=== PATIENT | female | born 1940 | race Two or more races ===

== ENCOUNTER 2022-10-04 10:30 | Inpatient (IN) | payer OTHER ==
[~2022-10-04] VITALS: Ht 170.2 cm; Wt 109.0 kg
[2022-10-04 11:09] LABS: Basophils # (auto) 0.1 10 ^3/uL (0-0.2); Basophils % (auto) 0.5 % (0.0-2.0); Eosinophils # (auto) 0 10 ^3/uL (0-0.8); Eosinophils % (auto) 0.1 % (0.0-7.0); Hemoglobin 15.6 g/dL (12.2-16.2); Lymphocytes # (auto) 1.6 10 ^3/uL (0.4-5.4); Lymphocytes % (auto) 9.5 % (10.0-50.0); Mean Corpuscular Hemoglobin 29.6 pg (28.0-32.0); Mean Corpuscular Hgb Conc. 33.3 g/dL (32.0-36.0); Monocytes # (auto) 1.1 10 ^3/uL (0-1.3); Monocytes % (auto) 6.9 % (0.0-12.0); Neutrophils # (auto) 13.7 10 ^3/uL (1.6-8.6); Red Blood Cells 5.28 10^6/uL (4.0-5.20); White Blood Cell 16.5 10^3/uL (4.4-10.8)
[2022-10-04 11:18] LABS: Urine Bacteria NONE SEEN /hpf (None Seen); Urine Blood Negative /uL (Negative); Urine Specific Gravity 1.019 (1.001-1.035); Urine WBC 16 /hpf (0 - 5)
[2022-10-04 11:40] LABS: Potassium 3.4 mmol/L (3.5-5.1)
[2022-10-04 11:52] LABS: Albumin 4.1 g/dL (3.4-5.0); BUN/Creatinine Ratio 10.2; Bilirubin, Total 1.1 mg/dL (0.2-1.0); Calcium 9.8 mg/dL (8.5-10.1); Total Protein 7.1 g/dL (6.4-8.2)
[2022-10-04] MEDS ORDERED: cefTRIAXone 1GM/50ML D5W 50 ML IV ONE (13:00)
[2022-10-04] MEDS ORDERED: ONDANSETRON HCL 4 MG/2 ML VIAL IV ONE (13:00)
[2022-10-04] MEDS ORDERED: MORPHINE SULFATE 4 MG/ML SYR/VIAL IV ONE (13:00)
[2022-10-04] MEDS ORDERED: POTASSIUM EFFERVESENT TAB 25 MEQ PO ONE (15:15)
[2022-10-04] MEDS ORDERED: ALBUTEROL SULF 2.5 MG/0.5ML(0.5%) NEB SOLN NEB PRN (16:00)
[2022-10-04] MEDS ORDERED: IPRATROPIUM BROM 0.5 MG/2.5ML INH SOL NEB PRN (16:00)
[2022-10-04] MEDS: SODIUM CHLORIDE 0.9% 1,000 ML IV SCH (17:17)
[2022-10-04 18:30] VITALS: BP 148/62
[2022-10-04] MEDS: MORPHINE SULFATE INJ 2 MG/ml SYRG IV PRN (19:08)
[2022-10-04] MEDS ORDERED: METO-517 PO (19:09)
[2022-10-04] MEDS ORDERED: MONT-8 PO (19:09)
[2022-10-04] MEDS ORDERED: DILT-29 PO (19:10)
[2022-10-04] MEDS ORDERED: LORA1TAB23 PO (19:10)
[2022-10-04] MEDS ORDERED: OMEP-263 PO (19:10)
[2022-10-04] MEDS ORDERED: LEVO100T8 PO (19:10)
[2022-10-04] MEDS ORDERED: VALS320T32 PO (19:10)
[2022-10-04] MEDS ORDERED: HYDR-3682 PO (19:10)
[2022-10-04] MEDS: MONTELUKAST SODIUM 10 MG TAB PO SCH (21:15)
[2022-10-04] MEDS: DOCUSATE SOD 100 MG CAP PO SCH (21:15)
[2022-10-04 22:00] VITALS: BP 143/56
[2022-10-05 05:00] VITALS: BP 103/40
[2022-10-05] MEDS: SODIUM CHLORIDE 0.9% 1,000 ML IV SCH ×2 (05:20→18:40)
[2022-10-05] MEDS: HYDROcodone-ACET 5/325MG TAB PO PRN (08:41)
[2022-10-05 09:00] VITALS: BP 126/40
[2022-10-05] MEDS ORDERED: cefTRIAXone 1GM/50ML D5W 50 ML IV SCH (09:00)
[2022-10-05 09:28] LABS: Basophils # (auto) 0.1 10 ^3/uL (0-0.2); Basophils % (auto) 0.4 % (0.0-2.0); Eosinophils # (auto) 0 10 ^3/uL (0-0.8); Hematocrit 40.9 % (36.0-46.0); Hemoglobin 13.9 g/dL (12.2-16.2); Lymphocytes # (auto) 1.1 10 ^3/uL (0.4-5.4); Lymphocytes % (auto) 4.6 % (10.0-50.0); Mean Corpuscular Hemoglobin 30.6 pg (28.0-32.0); Mean Corpuscular Hgb Conc. 34.1 g/dL (32.0-36.0); Mean Corpuscular Volume 89.7 fL (80.0-100.0); Monocytes # (auto) 2.7 10 ^3/uL (0-1.3); Monocytes % (auto) 11.1 % (0.0-12.0); Neutrophils # (auto) 20.2 10 ^3/uL (1.6-8.6); Neutrophils % (auto) 83.9 % (37.0-80.0); Red Blood Cells 4.56 10^6/uL (4.0-5.20); Red Cell Distribution Width 13.3 % (11.8-14.3); White Blood Cell 24.1 10^3/uL (4.4-10.8)
[2022-10-05 09:56] LABS: BUN/Creatinine Ratio 9.2; Potassium 3.4 mmol/L (3.5-5.1)
[2022-10-05] MEDS: DOCUSATE SOD 100 MG CAP PO SCH ×2 (10:28→21:21)
[2022-10-05] MEDS: POLYETHYLENE GLYCOL 17 GM PWDR PO SCH (10:28)
[2022-10-05] MEDS: VALSARTAN 80 MG TAB PO SCH (10:28)
[2022-10-05] MEDS: NIFEdipine ER 30 MG TAB PO SCH (10:29)
[2022-10-05 13:00] VITALS: BP 132/43
[2022-10-05] MEDS: MEROPENEM 1GM IVPB 100 ML IV SCH ×2 (14:54→21:23)
[2022-10-05 16:55] VITALS: BP 102/85
[2022-10-05] MEDS: ACETAMINOPHEN 500 MG TAB PO PRN (17:12)
[2022-10-05] MEDS: LACTULOSE 20Gm/30ML SOLN PO SCH ×2 (17:41→23:34)
[2022-10-05] MEDS: MONTELUKAST SODIUM 10 MG TAB PO SCH (21:21)
[2022-10-05 22:00] VITALS: BP 104/37
[2022-10-06 05:00] VITALS: BP 100/28
[2022-10-06] MEDS: LACTULOSE 20Gm/30ML SOLN PO SCH ×4 (05:13→23:41)
[2022-10-06] MEDS: HYDROcodone-ACET 5/325MG TAB PO PRN ×2 (05:14→11:40)
[2022-10-06] MEDS: MEROPENEM 1GM IVPB 100 ML IV SCH ×3 (05:19→21:43)
[2022-10-06 07:01] LABS: Hematocrit 39.4 % (36.0-46.0); Hemoglobin 12.9 g/dL (12.2-16.2); Mean Corpuscular Hgb Conc. 32.9 g/dL (32.0-36.0); Mean Corpuscular Volume 91.3 fL (80.0-100.0); Red Blood Cells 4.31 10^6/uL (4.0-5.20); Red Cell Distribution Width 13.7 % (11.8-14.3); White Blood Cell 26.2 10^3/uL (4.4-10.8)
[2022-10-06 07:25] LABS: Basophils % (manual) 0 (0.0-2.0); Blast Cells 0; Eosinophils % (manual) 0 (0-7); Metamyelocytes % 0; Myelocytes % 0; Promyelocytes % 0; Reactive Lymphocytes 0
[2022-10-06 07:32] LABS: BUN/Creatinine Ratio 11.3; Calcium 8.8 mg/dL (8.5-10.1)
[2022-10-06 07:49] LABS: Potassium 2.9 mmol/L (3.5-5.1)
[2022-10-06] MEDS: SODIUM CHLORIDE 0.9% 1,000 ML IV SCH (08:00)
[2022-10-06] MEDS ORDERED: POTASSIUM CHLORIDE 40 MEQ, LIDOCAINE 1% (LOCAL ANESTH.) 4 ML in SODIUM CHL 0.9% 250 ML IV ONE (08:15)
[2022-10-06 08:54] VITALS: BP 111/36
[2022-10-06] MEDS: NIFEdipine ER 30 MG TAB PO SCH (10:00)
[2022-10-06] MEDS: VALSARTAN 80 MG TAB PO SCH (10:00)
[2022-10-06] MEDS: POLYETHYLENE GLYCOL 17 GM PWDR PO SCH (11:23)
[2022-10-06] MEDS: DOCUSATE SOD 100 MG CAP PO SCH ×2 (11:23→21:43)
[2022-10-06 11:47] LABS: Band Neutrophils % (manual) 4; Lymphocytes % (manual) 4 (10.0-50.0); Monocytes % (manual) 7 (0-12)
[2022-10-06 12:50] VITALS: BP 126/53
[2022-10-06] MEDS: SOD CHL 0.45% WITH 20MEQ KCL 1,000 ML IV SCH (13:46)
[2022-10-06 17:00] VITALS: BP 105/82
[2022-10-06] MEDS: MORPHINE SULFATE INJ 2 MG/ml SYRG IV PRN (18:27)
[2022-10-06] MEDS: ONDANSETRON HCL 4 MG/2 ML VIAL IV PRN (19:47)
[2022-10-06 20:00] VITALS: BP 130/42
[2022-10-06] MEDS: MONTELUKAST SODIUM 10 MG TAB PO SCH (21:43)
[2022-10-06 22:00] VITALS: BP 130/42
[2022-10-07] MEDS: HYDROcodone-ACET 5/325MG TAB PO PRN ×3 (03:39→19:00)
[2022-10-07 05:00] VITALS: BP 109/38
[2022-10-07] MEDS: SOD CHL 0.45% WITH 20MEQ KCL 1,000 ML IV SCH ×3 (05:21→19:15)
[2022-10-07] MEDS: MEROPENEM 1GM IVPB 100 ML IV SCH ×3 (05:22→21:50)
[2022-10-07] MEDS: LACTULOSE 20Gm/30ML SOLN PO SCH ×2 (05:23→12:00)
[2022-10-07 05:26] LABS: Basophils # (auto) 0.1 10 ^3/uL (0-0.2); Basophils % (auto) 0.3 % (0.0-2.0); Eosinophils # (auto) 0 10 ^3/uL (0-0.8); Eosinophils % (auto) 0.1 % (0.0-7.0); Hematocrit 35.8 % (36.0-46.0); Hemoglobin 12.1 g/dL (12.2-16.2); Lymphocytes # (auto) 1.4 10 ^3/uL (0.4-5.4); Lymphocytes % (auto) 6.5 % (10.0-50.0); Mean Corpuscular Hemoglobin 30.4 pg (28.0-32.0); Mean Corpuscular Hgb Conc. 33.7 g/dL (32.0-36.0); Mean Corpuscular Volume 90.3 fL (80.0-100.0); Monocytes # (auto) 1.9 10 ^3/uL (0-1.3); Monocytes % (auto) 9.1 % (0.0-12.0); Neutrophils # (auto) 17.7 10 ^3/uL (1.6-8.6); Nucleated Red Blood Cells % 0.1 %; Red Blood Cells 3.96 10^6/uL (4.0-5.20); Red Cell Distribution Width 13.3 % (11.8-14.3); White Blood Cell 21.1 10^3/uL (4.4-10.8)
[2022-10-07 05:50] LABS: Potassium 3.4 mmol/L (3.5-5.1)
[2022-10-07 05:54] LABS: BUN/Creatinine Ratio 10.8; Calcium 8.4 mg/dL (8.5-10.1)
[2022-10-07 08:51] VITALS: BP 108/87
[2022-10-07] MEDS: DOCUSATE SOD 100 MG CAP PO SCH ×2 (09:52→21:49)
[2022-10-07] MEDS: POLYETHYLENE GLYCOL 17 GM PWDR PO SCH (09:52)
[2022-10-07 13:27] VITALS: BP 109/55
[2022-10-07 13:37] LABS: Urine Bacteria NONE SEEN /hpf (None Seen); Urine Blood 3+ /uL (Negative); Urine Specific Gravity 1.015 (1.001-1.035); Urine WBC 28 /hpf (0 - 5)
[2022-10-07 17:00] VITALS: BP 138/45
[2022-10-07] MEDS: ACETAMINOPHEN 500 MG TAB PO PRN (17:55)
[2022-10-07] MEDS: MONTELUKAST SODIUM 10 MG TAB PO SCH (21:51)
[2022-10-07 22:31] VITALS: BP 108/37
[2022-10-08] MEDS: HYDROcodone-ACET 5/325MG TAB PO PRN ×4 (00:40→21:38)
[2022-10-08 04:41] VITALS: BP 112/31
[2022-10-08 06:13] LABS: BUN/Creatinine Ratio 13.9 (10.0-20.0); Calcium 8.8 mg/dL (8.5-10.1); Potassium 3.6 mmol/L (3.5-5.1)
[2022-10-08 06:21] LABS: Basophils # (auto) 0.1 10 ^3/uL (0-0.2); Basophils % (auto) 0.5 % (0.0-2.0); Eosinophils # (auto) 0.1 10 ^3/uL (0-0.8); Eosinophils % (auto) 0.7 % (0.0-7.0); Hematocrit 36.1 % (36.0-46.0); Hemoglobin 12.1 g/dL (12.2-16.2); Lymphocytes # (auto) 1.5 10 ^3/uL (0.4-5.4); Lymphocytes % (auto) 10.5 % (10.0-50.0); Mean Corpuscular Hemoglobin 30.2 pg (28.0-32.0); Mean Corpuscular Hgb Conc. 33.5 g/dL (32.0-36.0); Mean Corpuscular Volume 90.4 fL (80.0-100.0); Monocytes # (auto) 1.6 10 ^3/uL (0-1.3); Monocytes % (auto) 10.8 % (0.0-12.0); Neutrophils # (auto) 11.2 10 ^3/uL (1.6-8.6); Neutrophils % (auto) 77.5 % (37.0-80.0); Red Blood Cells 3.99 10^6/uL (4.0-5.20); Red Cell Distribution Width 13.1 % (11.8-14.3); White Blood Cell 14.4 10^3/uL (4.4-10.8)
[2022-10-08] MEDS: MEROPENEM 1GM IVPB 100 ML IV SCH ×3 (06:41→21:37)
[2022-10-08] MEDS: SOD CHL 0.45% WITH 20MEQ KCL 1,000 ML IV SCH ×2 (06:41→17:11)
[2022-10-08 09:07] VITALS: BP 131/38
[2022-10-08] MEDS: DOCUSATE SOD 100 MG CAP PO SCH ×2 (09:19→21:37)
[2022-10-08] MEDS: POLYETHYLENE GLYCOL 17 GM PWDR PO SCH (09:19)
[2022-10-08 12:33] VITALS: BP 116/38
[2022-10-08 16:54] VITALS: BP 94/62
[2022-10-08] MEDS: ONDANSETRON HCL 4 MG/2 ML VIAL IV PRN (17:11)
[2022-10-08 20:31] LABS: Urine Bacteria NONE SEEN /hpf (None Seen); Urine Blood 3+ /uL (Negative); Urine Specific Gravity 1.011 (1.001-1.035); Urine WBC 11 /hpf (0 - 5)
[2022-10-08] MEDS: MONTELUKAST SODIUM 10 MG TAB PO SCH (21:37)
[2022-10-08 22:00] VITALS: BP 124/32
[2022-10-09] MEDS: SOD CHL 0.45% WITH 20MEQ KCL 1,000 ML IV SCH (01:15)
[2022-10-09 05:00] VITALS: BP 121/30
[2022-10-09] MEDS: MEROPENEM 1GM IVPB 100 ML IV SCH ×3 (05:16→22:46)
[2022-10-09] MEDS: HYDROcodone-ACET 5/325MG TAB PO PRN (05:16)
[2022-10-09 05:41] LABS: Basophils # (auto) 0.1 10 ^3/uL (0-0.2); Basophils % (auto) 0.9 % (0.0-2.0); Eosinophils # (auto) 0.2 10 ^3/uL (0-0.8); Eosinophils % (auto) 1.7 % (0.0-7.0); Hematocrit 37.7 % (36.0-46.0); Hemoglobin 12.8 g/dL (12.2-16.2); Lymphocytes # (auto) 1.9 10 ^3/uL (0.4-5.4); Lymphocytes % (auto) 13.7 % (10.0-50.0); Mean Corpuscular Hemoglobin 30.6 pg (28.0-32.0); Mean Corpuscular Hgb Conc. 33.9 g/dL (32.0-36.0); Mean Corpuscular Volume 90.2 fL (80.0-100.0); Monocytes # (auto) 1.5 10 ^3/uL (0-1.3); Monocytes % (auto) 11.2 % (0.0-12.0); Neutrophils # (auto) 9.8 10 ^3/uL (1.6-8.6); Neutrophils % (auto) 72.5 % (37.0-80.0); Nucleated Red Blood Cells % 0.1 %; Red Blood Cells 4.18 10^6/uL (4.0-5.20); Red Cell Distribution Width 13.5 % (11.8-14.3); White Blood Cell 13.5 10^3/uL (4.4-10.8)
[2022-10-09 05:59] LABS: Calcium 8.8 mg/dL (8.5-10.1); Potassium 3.8 mmol/L (3.5-5.1)
[2022-10-09 06:01] LABS: BUN/Creatinine Ratio 13.5 (10.0-20.0)
[2022-10-09] MEDS: ALBUTEROL SULF 2.5 MG/0.5ML(0.5%) NEB SOLN NEB PRN ×3 (07:19→22:11)
[2022-10-09] MEDS: IPRATROPIUM BROM 0.5 MG/2.5ML INH SOL NEB PRN ×3 (07:19→22:11)
[2022-10-09 08:54] VITALS: BP 152/64
[2022-10-09] MEDS ORDERED: LORazepam 0.5 MG TAB PO PRN (09:30)
[2022-10-09] MEDS: POLYETHYLENE GLYCOL 17 GM PWDR PO SCH (09:54)
[2022-10-09] MEDS: DOCUSATE SOD 100 MG CAP PO SCH ×2 (09:54→22:46)
[2022-10-09 11:53] VITALS: BP 134/51
[2022-10-09 14:45] VITALS: BP 134/51
[2022-10-09 17:00] VITALS: BP 131/58
[2022-10-09 22:00] VITALS: BP 143/62
[2022-10-09] MEDS: MONTELUKAST SODIUM 10 MG TAB PO SCH (22:46)
[2022-10-10 05:00] VITALS: BP 109/45
[2022-10-10] MEDS: MEROPENEM 1GM IVPB 100 ML IV SCH ×2 (05:36→14:16)
[2022-10-10 06:35] LABS: Basophils # (auto) 0.1 10 ^3/uL (0-0.2); Basophils % (auto) 1.1 % (0.0-2.0); Eosinophils # (auto) 0.2 10 ^3/uL (0-0.8); Eosinophils % (auto) 1.6 % (0.0-7.0); Hematocrit 34.7 % (36.0-46.0); Hemoglobin 11.7 g/dL (12.2-16.2); Lymphocytes # (auto) 1.3 10 ^3/uL (0.4-5.4); Lymphocytes % (auto) 12.9 % (10.0-50.0); Mean Corpuscular Hemoglobin 30.6 pg (28.0-32.0); Mean Corpuscular Hgb Conc. 33.7 g/dL (32.0-36.0); Mean Corpuscular Volume 90.7 fL (80.0-100.0); Monocytes # (auto) 1.4 10 ^3/uL (0-1.3); Monocytes % (auto) 13.8 % (0.0-12.0); Neutrophils % (auto) 70.6 % (37.0-80.0); Red Blood Cells 3.82 10^6/uL (4.0-5.20); Red Cell Distribution Width 13.1 % (11.8-14.3); White Blood Cell 9.9 10^3/uL (4.4-10.8)
[2022-10-10 06:49] LABS: BUN/Creatinine Ratio 11.8 (10.0-20.0); Calcium 9.1 mg/dL (8.5-10.1); Potassium 3.5 mmol/L (3.5-5.1)
[2022-10-10 08:54] VITALS: BP 124/69
[2022-10-10] MEDS ORDERED: CEFD300C2 PO (09:38)
[2022-10-10] MEDS: POLYETHYLENE GLYCOL 17 GM PWDR PO SCH (10:00)
[2022-10-10] MEDS: DOCUSATE SOD 100 MG CAP PO SCH (10:00)
[2022-10-10] MEDS: ALBUTEROL SULF 2.5 MG/0.5ML(0.5%) NEB SOLN NEB PRN (11:15)
[2022-10-10] MEDS: IPRATROPIUM BROM 0.5 MG/2.5ML INH SOL NEB PRN (11:15)
[2022-10-10 12:30] VITALS: BP 126/79
[2022-10-10 17:03] VITALS: BP 137/74
[2022-10-10 18:08] VITALS: BP 111/36
== END 2022-10-10 19:00 | disposition home or self-care (01) | DRG 872 ==
LOC: EDBD 10:30 → ER 10:30 → OVERFLOW 15:54 → CENTRAL 18:22
PROVIDERS: ADMIT Nurse Practitioner Acute Care; ATTEND Nurse Practitioner Acute Care
DX: A41.9 Sepsis, unspecified organism (principal); N30.90 Cystitis, unspecified without hematuria; K59.00 Constipation, unspecified; I10 Essential (primary) hypertension; E11.9 Type 2 diabetes mellitus without complications; E66.9 Obesity, unspecified; J45.909 Unspecified asthma, uncomplicated; M17.0 Bilateral primary osteoarthritis of knee; E03.9 Hypothyroidism, unspecified; G89.29 Other chronic pain; Z90.710 Acquired absence of both cervix and uterus; Z68.36 Body mass index [BMI] 36.0-36.9, adult; Z87.440 Personal history of urinary (tract) infections
CPT/HCPCS: 36415; 71045; 74176; 76775; 80048; 80053; 81001; 84484; 85007; 85025; 85027; 87040; 87086; 93005; 94640; 96365; 96375; 97110; 97116; 97163; 97530; G0378; J0696; J2001; J2185; J2405

== ENCOUNTER 2022-11-26 18:13 | Inpatient (IN) | payer OTHER ==
[~2022-11-26] VITALS: Ht 170.2 cm; Wt 98.1 kg
[~2022-11-26 18:13] MED LIST: CEFD300C2 PO; DILT-29 PO; LEVO100T8 PO; LORA1TAB23 PO; OMEP-263 PO; VALS320T32 PO
[2022-11-26] MEDS ORDERED: AZITHROMYCIN 500MG/ 250ML 250 ML IV ONE (19:00)
[2022-11-26] MEDS ORDERED: methylPREDNISolone SOD SUCC 125 MG/2 ML VL IV ONE (19:00)
[2022-11-26 19:10] LABS: Basophils # (auto) 0.1 10 ^3/uL (0-0.2); Basophils % (auto) 0.9 % (0.0-2.0); Eosinophils # (auto) 0.1 10 ^3/uL (0-0.8); Hematocrit 43.1 % (36.0-46.0); Hemoglobin 14.6 g/dL (12.2-16.2); Lymphocytes # (auto) 1.7 10 ^3/uL (0.4-5.4); Lymphocytes % (auto) 30.2 % (10.0-50.0); Mean Corpuscular Hemoglobin 29.7 pg (28.0-32.0); Mean Corpuscular Hgb Conc. 33.9 g/dL (32.0-36.0); Mean Corpuscular Volume 87.5 fL (80.0-100.0); Monocytes # (auto) 0.8 10 ^3/uL (0-1.3); Monocytes % (auto) 14.2 % (0.0-12.0); Neutrophils % (auto) 53.7 % (37.0-80.0); Nucleated Red Blood Cells % 0.4 %; Red Blood Cells 4.92 10^6/uL (4.0-5.20); Red Cell Distribution Width 13.4 % (11.8-14.3); White Blood Cell 5.6 10^3/uL (4.4-10.8)
[2022-11-26 19:52] LABS: BUN/Creatinine Ratio 11.8 (10.0-20.0); Calcium 9.8 mg/dL (8.5-10.1)
[2022-11-26 20:03] LABS: Bilirubin, Total 0.8 mg/dL (0.2-1.0); Total Protein 7.5 g/dL (6.4-8.2)
[2022-11-26 20:27] LABS: Urine Bacteria FEW /hpf (None Seen); Urine Blood Negative /uL (Negative); Urine Specific Gravity 1.009 (1.001-1.035); Urine WBC 1 /hpf (0 - 5)
[2022-11-26] MEDS ORDERED: POTASSIUM CHL 20MEQ/100ML 100 ML IV ONE (20:30)
[2022-11-26] MEDS ORDERED: ALBUTEROL SULF 2.5 MG/0.5ML(0.5%) NEB SOLN NEB PRN (20:45)
[2022-11-26 20:51] VITALS: BP 150/79
[2022-11-26] MEDS: ASCORBIC ACID 500 MG TAB PO SCH (23:23)
[2022-11-26] MEDS: MONTELUKAST SODIUM 10 MG TAB PO SCH (23:23)
[2022-11-27 05:35] LABS: Basophils # (auto) 0 10 ^3/uL (0-0.2); Basophils % (auto) 0.3 % (0.0-2.0); Eosinophils # (auto) 0 10 ^3/uL (0-0.8); Hematocrit 38.8 % (36.0-46.0); Hemoglobin 13.3 g/dL (12.2-16.2); Lymphocytes # (auto) 0.8 10 ^3/uL (0.4-5.4); Lymphocytes % (auto) 26.3 % (10.0-50.0); Mean Corpuscular Hemoglobin 30.1 pg (28.0-32.0); Mean Corpuscular Hgb Conc. 34.3 g/dL (32.0-36.0); Mean Corpuscular Volume 87.8 fL (80.0-100.0); Monocytes # (auto) 0.1 10 ^3/uL (0-1.3); Neutrophils # (auto) 2.2 10 ^3/uL (1.6-8.6); Neutrophils % (auto) 71.4 % (37.0-80.0); Nucleated Red Blood Cells % 0.1 %; Red Blood Cells 4.42 10^6/uL (4.0-5.20); Red Cell Distribution Width 13.6 % (11.8-14.3); White Blood Cell 3.1 10^3/uL (4.4-10.8)
[2022-11-27 05:56] LABS: Potassium 3.2 mmol/L (3.5-5.1)
[2022-11-27 06:02] LABS: BUN/Creatinine Ratio 11.8 (10.0-20.0)
[2022-11-27] MEDS: LEVOTHYROXINE SODIUM 100 MCG TAB PO SCH (06:58)
[2022-11-27] MEDS ORDERED: metFORMIN HYDROCHLORIDE 500 MG TAB PO SCH (08:00)
[2022-11-27] MEDS: AZITHROMYCIN 500MG/ 250ML 250 ML IV SCH (10:04)
[2022-11-27] MEDS: ZINC SULFATE 220mg CAP or TAB PO SCH (10:05)
[2022-11-27] MEDS: dilTIAZem 120MG ER CAP PO SCH (10:05)
[2022-11-27] MEDS: PANTOPRAZOLE 40 MG TAB PO SCH (10:05)
[2022-11-27] MEDS: ASCORBIC ACID 500 MG TAB PO SCH ×2 (10:05→22:30)
[2022-11-27] MEDS: ENOXAPARIN SOD 40 MG/0.4 ML SYRINGE SC SCH (10:24)
[2022-11-27] MEDS ORDERED: REMDESIVIR PER PHARMACY 0 ML IV SCH (10:30)
[2022-11-27] MEDS ORDERED: DexAMETHasone SOD PHOS 10MG/1ML VIAL INJ IV ONE (10:30)
[2022-11-27] MEDS: ACETAMINOPHEN 325 MG TAB PO PRN ×2 (10:51→21:04)
[2022-11-27] MEDS: ONDANSETRON HCL 4 MG/2 ML VIAL IV PRN (10:55)
[2022-11-27] MEDS ORDERED: IOHEXOL 350 MG/ML 100ML IJ ONE ×2 (11:42→11:45)
[2022-11-27] MEDS ORDERED: cefTRIAXone 1GM/50ML D5W 50 ML IV ONE (11:45)
[2022-11-27] MEDS ORDERED: REMDESIVIR 200 MG in NS 210ml LOADING DOSE ADULT IV ONE (12:00)
[2022-11-27] MEDS ORDERED: TEMAZEPAM 15 MG CAP PO ONE (21:15)
[2022-11-27 22:00] VITALS: BP 153/49
[2022-11-27] MEDS: MONTELUKAST SODIUM 10 MG TAB PO SCH (22:30)
[2022-11-28] VITALS (7 sets, daily range): BP systolic 112–150; BP diastolic 41–77
[2022-11-28 05:21] LABS: Basophils # (auto) 0 10 ^3/uL (0-0.2); Basophils % (auto) 0.1 % (0.0-2.0); Eosinophils # (auto) 0 10 ^3/uL (0-0.8); Hematocrit 37.2 % (36.0-46.0); Hemoglobin 12.6 g/dL (12.2-16.2); Lymphocytes # (auto) 1.3 10 ^3/uL (0.4-5.4); Lymphocytes % (auto) 15.5 % (10.0-50.0); Mean Corpuscular Hemoglobin 29.9 pg (28.0-32.0); Mean Corpuscular Hgb Conc. 33.8 g/dL (32.0-36.0); Mean Corpuscular Volume 88.5 fL (80.0-100.0); Monocytes # (auto) 0.8 10 ^3/uL (0-1.3); Monocytes % (auto) 8.9 % (0.0-12.0); Neutrophils # (auto) 6.6 10 ^3/uL (1.6-8.6); Neutrophils % (auto) 75.5 % (37.0-80.0); Nucleated Red Blood Cells % 0.1 %; Red Blood Cells 4.21 10^6/uL (4.0-5.20); Red Cell Distribution Width 13.7 % (11.8-14.3); White Blood Cell 8.7 10^3/uL (4.4-10.8)
[2022-11-28 05:33] LABS: BUN/Creatinine Ratio 12.5 (10.0-20.0); Potassium 3.2 mmol/L (3.5-5.1)
[2022-11-28] MEDS: LEVOTHYROXINE SODIUM 100 MCG TAB PO SCH (06:13)
[2022-11-28] MEDS: cefTRIAXone 1GM/50ML D5W 50 ML IV SCH (09:22)
[2022-11-28] MEDS: ASCORBIC ACID 500 MG TAB PO SCH ×2 (09:23→21:11)
[2022-11-28] MEDS: DexAMETHasone SOD PHOS 10MG/1ML VIAL INJ IV SCH (09:23)
[2022-11-28] MEDS: ENOXAPARIN SOD 40 MG/0.4 ML SYRINGE SC SCH (09:23)
[2022-11-28] MEDS: PANTOPRAZOLE 40 MG TAB PO SCH (09:23)
[2022-11-28] MEDS: ZINC SULFATE 220mg CAP or TAB PO SCH (09:23)
[2022-11-28] MEDS: dilTIAZem 120MG ER CAP PO SCH (09:25)
[2022-11-28] MEDS: AZITHROMYCIN 500MG/ 250ML 250 ML IV SCH (10:25)
[2022-11-28] MEDS: POTASSIUM EFFERVESENT TAB 25 MEQ GT SCH (10:29)
[2022-11-28] MEDS: ONDANSETRON HCL 4 MG/2 ML VIAL IV PRN (10:29)
[2022-11-28] MEDS: LORazepam 0.5 MG TAB PO PRN ×2 (10:30→17:50)
[2022-11-28] MEDS: REMDESIVIR 100mg 100 MG in SODIUM CHL 0.9% 230 ML IV SCH ×2 (16:14→16:25)
[2022-11-28] MEDS ORDERED: DOCUSATE SOD 100 MG CAP PO PRN (17:00)
[2022-11-28] MEDS ORDERED: VASELINE LIP THERAPY 10gm TOP PRN (17:00)
[2022-11-28] MEDS: MONTELUKAST SODIUM 10 MG TAB PO SCH (21:11)
[2022-11-29] MEDS: LORazepam 0.5 MG TAB PO PRN (00:04)
[2022-11-29 05:00] VITALS: BP 131/73
[2022-11-29 05:45] LABS: Basophils # (auto) 0 10 ^3/uL (0-0.2); Basophils % (auto) 0.1 % (0.0-2.0); Eosinophils # (auto) 0 10 ^3/uL (0-0.8); Hematocrit 38.4 % (36.0-46.0); Hemoglobin 12.6 g/dL (12.2-16.2); Lymphocytes # (auto) 1.2 10 ^3/uL (0.4-5.4); Lymphocytes % (auto) 12.6 % (10.0-50.0); Mean Corpuscular Hemoglobin 29.2 pg (28.0-32.0); Mean Corpuscular Hgb Conc. 32.9 g/dL (32.0-36.0); Mean Corpuscular Volume 88.8 fL (80.0-100.0); Monocytes # (auto) 0.7 10 ^3/uL (0-1.3); Monocytes % (auto) 7.5 % (0.0-12.0); Neutrophils # (auto) 7.4 10 ^3/uL (1.6-8.6); Neutrophils % (auto) 79.8 % (37.0-80.0); Nucleated Red Blood Cells % 0.1 %; Red Blood Cells 4.33 10^6/uL (4.0-5.20); Red Cell Distribution Width 13.9 % (11.8-14.3); White Blood Cell 9.3 10^3/uL (4.4-10.8)
[2022-11-29 06:05] LABS: Potassium 4.3 mmol/L (3.5-5.1)
[2022-11-29 06:10] LABS: BUN/Creatinine Ratio 18.2 (10.0-20.0); Calcium 9.1 mg/dL (8.5-10.1); Total Protein 5.4 g/dL (6.4-8.2)
[2022-11-29 06:17] LABS: Albumin 3.1 g/dL (3.4-5.0); Bilirubin, Total 0.5 mg/dL (0.2-1.0)
[2022-11-29] MEDS: LEVOTHYROXINE SODIUM 100 MCG TAB PO SCH (06:21)
[2022-11-29 07:51] VITALS: BP 141/61
[2022-11-29 08:00] VITALS: BP 138/78
[2022-11-29] MEDS: DexAMETHasone SOD PHOS 10MG/1ML VIAL INJ IV SCH (09:49)
[2022-11-29] MEDS: cefTRIAXone 1GM/50ML D5W 50 ML IV SCH (09:50)
[2022-11-29] MEDS: POTASSIUM EFFERVESENT TAB 25 MEQ GT SCH (09:50)
[2022-11-29] MEDS: ASCORBIC ACID 500 MG TAB PO SCH (09:50)
[2022-11-29] MEDS: AZITHROMYCIN 500MG/ 250ML 250 ML IV SCH (09:50)
[2022-11-29] MEDS: PANTOPRAZOLE 40 MG TAB PO SCH (09:50)
[2022-11-29] MEDS: ZINC SULFATE 220mg CAP or TAB PO SCH (09:51)
[2022-11-29] MEDS: dilTIAZem 120MG ER CAP PO SCH (09:51)
[2022-11-29] MEDS: ENOXAPARIN SOD 40 MG/0.4 ML SYRINGE SC SCH (10:04)
[2022-11-29] MEDS ORDERED: AMOX500T86 PO (10:20)
[2022-11-29 11:25] VITALS: BP 138/78
== END 2022-11-29 12:45 | disposition home or self-care (01) | DRG 177 ==
LOC: ER 18:13 → OVERFLOW 20:44 → EAST 11-27 21:26
PROVIDERS: ADMIT Nurse Practitioner; ATTEND Internal Medicine Pulmonary Disease
PROC: XW033E5 Introduction of Remdesivir Anti-infective into Peripheral Vein, Percutaneous Approach, New Technology Group 5 (ICD-10-PCS; principal; 2022-11-27)
DX: U07.1 COVID-19 (principal); J12.82 Pneumonia due to coronavirus disease 2019; J96.01 Acute respiratory failure with hypoxia; J98.11 Atelectasis; E03.9 Hypothyroidism, unspecified; E11.9 Type 2 diabetes mellitus without complications; E78.5 Hyperlipidemia, unspecified; E87.6 Hypokalemia; I10 Essential (primary) hypertension; I45.10 Unspecified right bundle-branch block; J45.909 Unspecified asthma, uncomplicated; Z90.710 Acquired absence of both cervix and uterus; E66.01 Morbid (severe) obesity due to excess calories; Z68.33 Body mass index [BMI] 33.0-33.9, adult; R91.1 Solitary pulmonary nodule; Z90.49 Acquired absence of other specified parts of digestive tract
CPT/HCPCS: 36415; 71045; 71275; 80048; 80053; 81001; 82962; 83605; 83880; 84484; 85025; 85379; 87040; 87081; 87426; 93005; 96365; G0378; J0696; J1100; J2405; J3480

== ENCOUNTER → 2023-12-04 | Outpatient (CLI) | payer OTHER ==
[~2023-12-04] MED LIST changes: +AMOX500T86 PO; -CEFD300C2 PO; +LORA-1123 PO; -LORA1TAB23 PO; -OMEP-263 PO; +OMEP-448 PO
[2023-12-04 11:23] LABS: Basophils # (auto) 0.2 10 ^3/uL (0-0.2); Basophils % (auto) 2.1 % (0.0-2.0); Eosinophils # (auto) 0.2 10 ^3/uL (0-0.8); Eosinophils % (auto) 2.5 % (0.0-7.0); Hematocrit 43.8 % (36.0-46.0); Hemoglobin 14.2 g/dL (12.2-16.2); Lymphocytes # (auto) 1.8 10 ^3/uL (0.4-5.4); Lymphocytes % (auto) 19.6 % (10.0-50.0); Mean Corpuscular Hemoglobin 30.3 pg (28.0-32.0); Mean Corpuscular Hgb Conc. 32.4 g/dL (32.0-36.0); Mean Corpuscular Volume 93.7 fL (80.0-100.0); Monocytes # (auto) 0.8 10 ^3/uL (0-1.3); Monocytes % (auto) 8.6 % (0.0-12.0); Neutrophils # (auto) 6.3 10 ^3/uL (1.6-8.6); Neutrophils % (auto) 67.2 % (37.0-80.0); Red Blood Cells 4.68 10^6/uL (4.0-5.20); Red Cell Distribution Width 12.3 % (11.8-14.3); White Blood Cell 9.4 10^3/uL (4.4-10.8)
[2023-12-04 11:55] LABS: Triglycerides 146 mg/dL (< 150)
[2023-12-04 11:56] LABS: Albumin 4.7 g/dL (3.2-4.8); Alkaline Phosphatase 102 U/L (46-116); Anion Gap 5 (5-15); BUN/Creatinine Ratio 12.7 (10.0-20.0); Blood Urea Nitrogen 20 mg/dL (9-23); Calcium 10.3 mg/dL (8.5-10.1); Carbon Dioxide 26 mmol/L (20-30); Chloride 109 mmol/L (98-107); Glucose 121 mg/dL (74-106); LDL Cholesterol 168 mg/dL (< 100); Potassium 4.4 mmol/L (3.5-5.1); Sodium 140 mmol/L (136-145)
[2023-12-04 11:57] LABS: Bilirubin, Total 0.8 mg/dL (0.2-1.0); Cholesterol 229 mg/dL (< 200); HDL Cholesterol 42 mg/dL (40-59)
[2023-12-04 11:58] LABS: Creatinine, Urine 75.28 mg/dL (30.0-125.0)
[2023-12-04 12:06] LABS: Alanine Aminotransferase 18 U/L (7-40); Aspartate Aminotransferase 17 U/L (13-40)
== END | disposition home or self-care (01) ==
LOC: LAB 11:06
PROVIDERS: ATTEND Nurse Practitioner Family
DX: E11.8 Type 2 diabetes mellitus with unspecified complications (principal); E66.01 Morbid (severe) obesity due to excess calories; Z79.899 Other long term (current) drug therapy
CPT/HCPCS: 36415; 80053; 80061; 82043; 82306; 82570; 83036; 84439; 84443; 85025

== ENCOUNTER 2024-02-18 12:21 | Emergency (ER) | payer OTHER ==
[~2024-02-18] VITALS: Ht 170.2 cm; Wt 99.5 kg
[2024-02-18 13:15] LABS: Basophils # (auto) 0.1 10 ^3/uL (0-0.2); Basophils % (auto) 0.7 % (0.0-2.0); Eosinophils # (auto) 0.1 10 ^3/uL (0-0.8); Eosinophils % (auto) 0.5 % (0.0-7.0); Hematocrit 43.9 % (36.0-46.0); Hemoglobin 14.8 g/dL (12.2-16.2); Lymphocytes % (auto) 17.6 % (10.0-50.0); Mean Corpuscular Hemoglobin 30.8 pg (28.0-32.0); Mean Corpuscular Hgb Conc. 33.8 g/dL (32.0-36.0); Mean Corpuscular Volume 91.1 fL (80.0-100.0); Monocytes # (auto) 0.9 10 ^3/uL (0-1.3); Monocytes % (auto) 8.2 % (0.0-12.0); Neutrophils # (auto) 8.4 10 ^3/uL (1.6-8.6); Nucleated Red Blood Cells % 0.1 %; Red Blood Cells 4.82 10^6/uL (4.0-5.20); Red Cell Distribution Width 13.1 % (11.8-14.3); White Blood Cell 11.5 10^3/uL (4.4-10.8)
[2024-02-18 13:27] VITALS: PULSE 74; RESP 16; O2SAT 97
[2024-02-18 13:31] LABS: Alanine Aminotransferase 21 U/L (7-40); Albumin 4.6 g/dL (3.2-4.8); Alkaline Phosphatase 92 U/L (46-116); Anion Gap 12 (5-15); Aspartate Aminotransferase 17 U/L (13-40); Blood Urea Nitrogen 13 mg/dL (9-23); Calcium 10.1 mg/dL (8.7-10.4); Carbon Dioxide 23 mmol/L (20-30); Chloride 99 mmol/L (98-107); Glucose 151 mg/dL (74-106); Potassium 3.1 mmol/L (3.5-5.1); Sodium 134 mmol/L (136-145)
[2024-02-18 13:32] LABS: Bilirubin, Total 1.1 mg/dL (0.2-1.0); Total Protein 6.8 g/dL (5.7-8.2)
[2024-02-18] MEDS: MORPHINE SULFATE 4 MG/ML SYR/VIAL IV ONE (13:33)
[2024-02-18] MEDS: ONDANSETRON HCL 4 MG/2 ML VIAL IV ONE (13:33)
[2024-02-18] MEDS: FAMOTIDINE (10MG/ML) 2ML VL IV ONE (13:33)
[2024-02-18 15:17] VITALS: BP 119/47; PULSE 70; RESP 16; TEMP 97.8; O2SAT 96
[2024-02-18] MEDS ORDERED: ZOFR4T PO (15:22)
[2024-02-18] MEDS ORDERED: ACET1CAP14 PO (15:22)
[2024-02-18] MEDS ORDERED: ESOM40CA39 PO (15:22)
[2024-02-18] MEDS: SODIUM CHLORIDE 0.9% 1,000 ML IV ONE (15:25)
[2024-02-18] MEDS: POTASSIUM CHL 20 Meq TABLET PO ONE (15:25)
[2024-02-18] MEDS: POTASSIUM EFFERVESENT TAB 25 MEQ PO ONE (15:30)
[2024-02-18 16:16] LABS: Urine Bacteria FEW /hpf (None Seen); Urine Blood Negative /uL (Negative); Urine Clarity Turbid (Clear); Urine Color Yellow (Yellow); Urine Hyaline Cast FEW /lpf (0 - 2); Urine Protein, UAD TRACE (Negative); Urine Specific Gravity 1.013 (1.001-1.035); Urine Urobilinogen Normal (Negative); Urine WBC 28 /hpf (0 - 5); Urine pH 5.5 (5.0-9.0)
== END 2024-02-18 16:39 | disposition home or self-care (01) ==
LOC: ER 12:21
DX: K43.9 Ventral hernia without obstruction or gangrene (principal); K44.9 Diaphragmatic hernia without obstruction or gangrene; E87.6 Hypokalemia; E87.1 Hypo-osmolality and hyponatremia; J45.909 Unspecified asthma, uncomplicated; E78.5 Hyperlipidemia, unspecified; I10 Essential (primary) hypertension; E03.9 Hypothyroidism, unspecified; Z90.49 Acquired absence of other specified parts of digestive tract; Z90.89 Acquired absence of other organs; Z90.710 Acquired absence of both cervix and uterus; Z79.1 Long term (current) use of non-steroidal anti-inflammatories (NSAID); Z79.899 Other long term (current) drug therapy
CPT/HCPCS: 36415; 71045; 74176; 80053; 81001; 83690; 83880; 84484; 85025; 93005; 96361; 96374; 96375; 99285; J2270; J2405; J3490; J7030

== ENCOUNTER → 2024-06-08 | Outpatient (CLI) | payer OTHER ==
[~2024-06-08] MED LIST changes: +ACET1CAP14 PO; +ALBUTEROL SULF 2.5 MG/0.5ML(0.5%) NEB SOLN ONE; +ESOM40CA39 PO; +ZOFR4T PO
== END | disposition home or self-care (01) ==
LOC: RT 10:40
PROVIDERS: ATTEND Internal Medicine Pulmonary Disease
DX: R06.09 Other forms of dyspnea (principal); R05.9 Cough, unspecified; Z87.891 Personal history of nicotine dependence
CPT/HCPCS: 94060; 94727; 94729

== ENCOUNTER → 2024-07-01 | Outpatient (CLI) | payer OTHER ==
[~2024-07-01] MED LIST changes: -ALBUTEROL SULF 2.5 MG/0.5ML(0.5%) NEB SOLN ONE
[2024-07-01 11:09] LABS: Urine Bacteria None Seen /hpf (None Seen)
[2024-07-01 11:42] LABS: Potassium 3.5 mmol/L (3.5-5.1)
[2024-07-01 11:49] LABS: BUN/Creatinine Ratio 9.2 (10.0-20.0); Calcium 10.9 mg/dL (8.7-10.4)
[2024-07-01 11:50] LABS: Albumin 4.8 g/dL (3.2-4.8)
[2024-07-01 11:51] LABS: Phosphorus 2.8 mg/dL (2.4-5.1)
[2024-07-01 11:59] LABS: Basophils # (auto) 0.2 10 ^3/uL (0-0.2); Basophils % (auto) 2.7 % (0.0-2.0); Eosinophils # (auto) 0.2 10 ^3/uL (0-0.8); Hematocrit 44.8 % (36.0-46.0); Hemoglobin 15.2 g/dL (12.2-16.2); Lymphocytes # (auto) 2.3 10 ^3/uL (0.4-5.4); Lymphocytes % (auto) 30.6 % (10.0-50.0); Mean Corpuscular Hemoglobin 31.7 pg (28.0-32.0); Mean Corpuscular Volume 93.1 fL (80.0-100.0); Monocytes # (auto) 0.7 10 ^3/uL (0-1.3); Monocytes % (auto) 9.1 % (0.0-12.0); Neutrophils # (auto) 4.3 10 ^3/uL (1.6-8.6); Neutrophils % (auto) 55.6 % (37.0-80.0); Nucleated Red Blood Cells % 0.1 %; Platelet Count (auto) 291 10^3/uL (140-450); Red Blood Cells 4.81 10^6/uL (4.0-5.20); Red Cell Distribution Width 13.4 % (11.8-14.3); White Blood Cell 7.7 10^3/uL (4.4-10.8)
[2024-07-01 12:07] LABS: Urine Blood Negative /uL (Negative); Urine Clarity Clear (Clear); Urine Color Light-Yellow (Yellow); Urine Protein, UAD Negative (Negative); Urine Specific Gravity 1.009 (1.001-1.035); Urine Urobilinogen Normal (Negative); Urine WBC 7 /hpf (0 - 5); Urine pH 5.5 (5.0-9.0)
[2024-07-01 12:42] LABS: Creatinine, Urine 73.42 mg/dL (30.0-125.0); Urine Protein/Creatinine Ratio 0.2
== END | disposition home or self-care (01) ==
LOC: LAB 10:57
PROVIDERS: ATTEND Internal Medicine Nephrology
DX: E21.3 Hyperparathyroidism, unspecified (principal); E56.9 Vitamin deficiency, unspecified
CPT/HCPCS: 36415; 80069; 81001; 82306; 82570; 83970; 84156; 84550; 85025

== ENCOUNTER → 2024-09-27 | Outpatient (CLI) | payer OTHER ==
[2024-09-27 11:19] LABS: Basophils # (auto) 0 10 ^3/uL (0-0.2); Basophils % (auto) 0.1 % (0.0-2.0); Eosinophils # (auto) 0.2 10 ^3/uL (0-0.8); Eosinophils % (auto) 1.9 % (0.0-7.0); Hematocrit 43.5 % (36.0-46.0); Hemoglobin 14.5 g/dL (12.2-16.2); Lymphocytes # (auto) 2.3 10 ^3/uL (0.4-5.4); Lymphocytes % (auto) 24.1 % (10.0-50.0); Mean Corpuscular Hemoglobin 30.8 pg (28.0-32.0); Mean Corpuscular Hgb Conc. 33.4 g/dL (32.0-36.0); Mean Corpuscular Volume 92.3 fL (80.0-100.0); Monocytes # (auto) 0.8 10 ^3/uL (0-1.3); Monocytes % (auto) 8.4 % (0.0-12.0); Neutrophils # (auto) 6.3 10 ^3/uL (1.6-8.6); Neutrophils % (auto) 65.5 % (37.0-80.0); Platelet Count (auto) 288 10^3/uL (140-450); Red Blood Cells 4.71 10^6/uL (4.0-5.20); Red Cell Distribution Width 12.8 % (11.8-14.3); White Blood Cell 9.7 10^3/uL (4.4-10.8)
[2024-09-27 11:54] LABS: Creatinine, Urine 239.4 mg/dL (30.0-125.0)
[2024-09-27 11:56] LABS: Alanine Aminotransferase 21 U/L (7-40); Alkaline Phosphatase 81 U/L (46-116); Anion Gap 8 (5-15); BUN/Creatinine Ratio 11.5 (10.0-20.0); Blood Urea Nitrogen 19 mg/dL (9-23); Carbon Dioxide 26 mmol/L (20-31); Chloride 105 mmol/L (98-107); GFR African American 38 mL/min; GFR Non-African American 31 mL/min; Potassium 3.9 mmol/L (3.5-5.1); Sodium 139 mmol/L (136-145)
[2024-09-27 11:57] LABS: Glucose 131 mg/dL (74-106)
[2024-09-27 11:58] LABS: Calcium 10.5 mg/dL (8.7-10.4); Triglycerides 191 mg/dL (< 150)
[2024-09-27 11:59] LABS: Aspartate Aminotransferase 19 U/L (13-40); Bilirubin, Total 1.1 mg/dL (0.2-1.0); HDL Cholesterol 44 mg/dL (40-59); Phosphorus 3.2 mg/dL (2.4-5.1)
[2024-09-27 12:00] LABS: Albumin 4.9 g/dL (3.2-4.8); Cholesterol 259 mg/dL (< 200); LDL Cholesterol 187 mg/dL (< 100)
[2024-09-27 12:12] LABS: Urine Bacteria FEW /hpf (None Seen); Urine Blood Negative /uL (Negative); Urine Color Yellow (Yellow); Urine Hyaline Cast MOD /lpf (0 - 2); Urine Protein, UAD TRACE (Negative); Urine Specific Gravity 1.022 (1.001-1.035); Urine Squamous Epithelial Cell MOD /hpf (<5); Urine Urobilinogen Normal (Negative); Urine WBC 17 /HPF (0-5); Urine pH 5.5 (5.0-9.0)
[2024-09-27 12:14] LABS: Urine Clarity Cloudy (Clear)
[2024-09-27 12:29] LABS: Uric Acid 7.5 mg/dL (3.1-7.8)
== END | disposition home or self-care (01) ==
LOC: LAB 10:57
PROVIDERS: ATTEND Nurse Practitioner Family
DX: I12.9 Hypertensive chronic kidney disease with stage 1 through stage 4 chronic kidney disease, or unspecified chronic kidney disease (principal); E11.22 Type 2 diabetes mellitus with diabetic chronic kidney disease; N18.30 Chronic kidney disease, stage 3 unspecified; E11.21 Type 2 diabetes mellitus with diabetic nephropathy; E11.9 Type 2 diabetes mellitus without complications; E78.2 Mixed hyperlipidemia; N39.0 Urinary tract infection, site not specified; E21.3 Hyperparathyroidism, unspecified; M10.9 Gout, unspecified; E55.9 Vitamin D deficiency, unspecified; R80.9 Proteinuria, unspecified; D63.1 Anemia in chronic kidney disease; Z00.01 Encounter for general adult medical examination with abnormal findings
CPT/HCPCS: 36415; 80053; 80061; 80069; 81001; 82043; 82570; 83036; 83970; 84443; 84550; 85025

== ENCOUNTER 2024-10-10 18:21 | Inpatient (IN) | payer OTHER ==
[~2024-10-10] VITALS: Ht 170.2 cm; Wt 100.5 kg
--- NOTE | 2024-10-10 18:51 | ECG ---
[facility] Test Date: 2024-10-10 Test Time: 18:46:06 Pat Name: CLAIRE MENARD Department: ED Room: Gender: F [employer] Vice President: elliott : 1940 Requested By: EMERGENCY EMERGENCY Order Number: [id number] Reading MD: Measurements Intervals [place] Rate: 72 P: 81 IL: 160 QRS: -17 QRSD: 125 T: 73 QT: 401 QTc: 439 Interpretive Statements Sinus rhythm Ventricular premature complex IVCD, consider atypical RBBB ST elevation, consider inferior injury Please click the below link to view image of tracing.
[2024-10-10 19:00] VITALS: PULSE 79; RESP 18; O2SAT 97
--- NOTE | 2024-10-10 19:04 | ED.PDOC ---
History of Present Illness HPI Comments 84-year-old female presents with a chief complaint of generalized weakness, dysuria, nausea, and vomiting. Patient states that she has a "bad UTI" and was prescribed antibiotics x 5 days ago but states that she is not getting better. Patient mentions that she does not remember the name of the antibiotic that she was prescribed. Patient reports that it is painful to urinate and has been having constant nausea and vomiting. Patient denies any blood in her urine or emesis. No other symptoms or modifying factors present at this time. Chief Complaint: General Weakness Time Seen by MD: 18:57 Primary Care Provider: OPHELIA Reviewed Notes: Nurses Notes, Medications, Allergies Allergies: Coded Allergies: NO KNOWN ALLERGIES (Unverified , 10/04/22) Home Meds Active Scripts Acetaminophen (Tylenol) 325 Mg Cap, 650 MG PO Q6HP PRN, #60 CAP prn pain Prov:KEVIN NUNEZ MD 02/18/24 Ondansetron Odt 4MG Tab (ZOFRAN PO) 4 Mg Tb, 4 MG PO TID PRN, #30 TAB prn nausea/vomiting. ODT TAB-DISSOLVE IN MOUTH, THEN SWALLOW Prov:KEVIN NUNEZ MD 02/18/24 Esomeprazole Magnesium Trihydr (Nexium) 40 Mg Cap, 1 CAP PO DAILY, #60 CAP 5 Refills Prov:KEVIN NUNEZ MD 02/18/24 Amoxicillin & Pot Clavulanate (Augmentin) 500 Mg Tab, 1 TAB PO BID, #14 TAB Prov:STACIE COY MD 11/29/22 Reported Medications Valsartan-Hydrochlorothiazide (VALSARTAN/HYDROCHLOROTHIA) 1 Tab Tab, 1 TAB PO DAILY 10/04/22 Diltiazem Hcl (DILTIAZEM HCL ER) 240 Mg Cap, 1 CAP PO DAILY 10/04/22 Levothyroxine Sodium (Levothyroxine Sodium) 100 Mcg Tab, 1 TAB PO DAILY 10/04/22 Omeprazole (Omeprazole Dr) 40 Mg Cap, 1 CAP PO DAILY 10/04/22 Lorazepam (Lorazepam) 1 Mg Tab, 1 TAB PO BID 10/04/22 Information Source: Patient Mode of Arrival: EMS Severity: Moderate Timing: Days Duration: Since onset Prehospital treatment: None Past Medical History PAST MEDICAL HISTORY: Asthma, DM, High Lipids, HTN, Thyroid Surgical History: Appendectomy, Cholecystectomy, Hysterectomy, Tonsillectomy ADVERTISING COORDINATOR History: Denies all ADVERTISING COORDINATOR Hx Family History Family History: Reviewed,noncontributory to illness Social History Smoker: Non-Smoker Alcohol: Denies ETOH Use Drugs: Denies Drug Use Lives In: Home Constitutional: reports: weakness; denies: chills, diaphoresis, fatigue, fever, malaise, sweats, others EENTM: denies: blurred vision, double vision, ear bleeding, ear discharge, ear drainage, ear pain, ear ringing, eye pain, eye redness, hearing loss, mouth pain, mouth swelling, nasal discharge, nose bleeding, nose congestion, nose pain, photophobia, tearing, throat pain, throat swelling, voice changes, others Respiratory: denies: cough, hemoptysis, orthopnea, SOB at rest, shortness of breath, SOB with excertion, stridor, wheezing, others Cardiovascular: denies: chest pain, dizzy spells, diaphoresis, Dyspnea on exertion, edema, irregular heart beat, left arm pain, lightheadedness, palpitations, PND, syncope, others Gastrointestinal: reports: nausea, vomiting; denies: abdomen distended, abdominal pain, blood streaked bowels, constipated, diarrhea, dysphagia, difficulty swallowing, hematemesis, melena, poor appetite, poor fluid intake, rectal bleeding, rectal pain, others Genitourinary: reports: dysuria; denies: abnormal vagina bleeding, burning, dyspareunia, flank pain, frequency, hematuria, incontinence, pain, , vagina discharge, urgency, others Neurological: denies: dizziness, fainting, headache, left sided numbness, left sided weakness, numbness, paresthesia, pre-existing deficit, right sided numbness, right sided weakness, seizure, speech problems, tingling, tremors, weakness, others Musculoskeletal: denies: back pain, gout, joint pain, joint swelling, muscle pain, muscle stiffness, neck pain, others Integumetry: denies: bruises, change in color, change in hair/nails, dryness, laceration, lesions, lumps, rash, wounds, others Allergic/Immunocompromised: denies: Difficulty Healing, Frequent Infections, Hives, Itching, others Hematologic/Lymphatic: denies: anemia, blood clots, easy bleeding, easy bruising, swollen glands, others Endocrine: denies: excessive hunger, excessive sweating, excessive thirst, excessive urination, flushing, intolerance to cold, intolerance to heat, unexplained weight gain, unexplained weight loss, others Psychiatric: denies: anxiety, bipolar disorder, depression, hopeless, panic disorder, schizophrenia, sleepless, suicidal, others All Other Systems: Reviewed and Negative Physical Exam General Appearance: Moderate Distress, Obese HEENT: Normal ENT Inspection, Pharynx Normal, TMs Normal Neck: Full Range of Motion, Non-Tender, Normal, Normal Inspection Respiratory: Chest Non-Tender, Lungs Clear, No Accessory Muscle Use, No Resp iratory Distress, Normal Breath Sounds Cardiovascular: No Edema, No JVD, No Murmur, No Gallop, Normal Peripheral Pulses, Regular Rate/Rhythm Breast Exam: Deferred Gastrointestinal: No Organomegaly, No Pulsatile Mass, Normal Bowel Sounds, Soft, Suprapubic, Tenderness Genitalia: Deferred Pelvic: Deferred Rectal: Deferred Extremities: No calf tenderness, Normal capillary refill, Normal inspection, Normal range of motion, Non-tender, No pedal edema Musculoskeletal : Apperance: Normal Neurologic: Alert, bomb squad officer II-XII nml as Tested, Motor Weakness, Normal Affect, Normal Mood, No Sensory Deficits Cerebellar Function: Normal Reflexes: Normal Skin: Dry, Normal Color, Warm Lymphatic: No Adenopathy Was a procedure done? Was a procedure done?: No Differential Dx Considerations may include: Intractable abdominal pain, UTI, X-Ray, Labs, Meds, VS Vital Signs Date Time Temp Pulse Resp B/P (MAP) Pulse Ox O2 Delivery O2 Flow Rate FiO2 10/10/24 19:00 79 18 97 Room Air* 0 21 10/10/24 19:00 79.9 76 18 162/70 (100) 97 79.9 10/10/24 18:46 72 10/10/24 18:27 97.8 78 18 164/76 (105) 98 97.8 Lab Test 10/10/24 19:17 10/10/24 18:50 Range/Units White Blood Count 9.2 4.4-10.8 10^3/uL Red Blood Count 4.74 4.0-5.20 10^6/uL Hemoglobin 14.4 12.2-16.2 g/dL Hematocrit 44.0 36.0-46.0 % Mean Corpuscular Volume 92.9 80.0-100.0 fL Mean Corpuscular Hemoglobin 30.3 28.0-32.0 pg Mean Corpuscular Hemoglobin Concent 32.7 32.0-36.0 g/dL Red Cell Distribution Width 13.0 11.8-14.3 % Platelet Count 249 140-450 10^3/uL Mean Platelet Volume 8.5 6.9-10.8 fL Neutrophils (%) (Auto) 64.6 37.0-80.0 % Lymphocytes (%) (Auto) 20.6 10.0-50.0 % Monocytes (%) (Auto) 10.1 0.0-12.0 % Eosinophils (%) (Auto) 2.1 0.0-7.0 % Basophils (%) (Auto) 2.6 H 0.0-2.0 % Neutrophils # (Auto) 6.0 1.6-8.6 10 ^3/uL Lymphocytes # (Auto) 1.9 0.4-5.4 10 ^3/uL Monocytes # (Auto) 0.9 0-1.3 10 ^3/uL Eosinophils # (Auto) 0.2 0-0.8 10 ^3/uL Basophils # (Auto) 0.2 0-0.2 10 ^3/uL Nucleated Red Blood Cells 0.0 % Sodium Level 139 136-145 mmol/L Potassium Level 3.6 3.5-5.1 mmol/L Chloride Level 104 98-107 mmol/L Carbon Dioxide Level 24 20-31 mmol/L Anion Gap 11 5-15 Blood Urea Nitrogen 20 9-23 mg/dL Creatinine 1.45 H 0.550-1.02 mg/dL Glomerular Filtration Rate Calc 35 >90 mL/min BUN/Creatinine Ratio 13.8 10.0-20.0 Serum Glucose 113 H 74-106 mg/dL Lactic Acid Level 1.2 0.4-2.0 mmol/L Calcium Level 10.5 H 8.7-10.4 mg/dL Urine Color Colorless Yellow Urine Clarity Clear Clear Urine pH 5.5 5.0-9.0 Urine Specific [place] 1.007 1.001-1.035 Urine Protein Negative Negative Urine Ketones Negative Negative Urine Blood Negative Negative /uL Urine Nitrite Negative Negative Urine Bilirubin Negative Negative Urine Urobilinogen Normal Negative mg/dL Urine Leukocyte Esterase Trace Negative /uL Urine RBC 1 0 - 4 /hpf Urine Microscopic WBC 1 0-5 /HPF Urine Squamous Epithelial Cells Few <5 /hpf Urine Bacteria None seen None Seen /hpf Urine Glucose Normal Normal mg/dL IV Hep-Lock was established The CBC and chemistry panel are within normal limits The urine test is negative for infection At this time, the patient was being admitted to the hospitalist. Time of 1ST Reevaluation: 19:27 Reevaluation 1ST: Unchanged Patient Education/Counseling: Diagnosis, Treatment, Prognosis Family Education/Counseling: No Family Present Departure 1 Departure Time of Disposition: 19:56 Impression: Primary Impression: Intractable abdominal pain Disposition: 09 ADMITTED INPATIENT Admit to: Med Surg Condition: Fair Critical Care Note Critical Care Time?: No Stability Stability form required: No Heart Score Heart Score: Heart Score Response (Comments) Value History N/A 0 EKG N/A 0 Age N/A 0 Risk Factors N/A 0 Troponin N/A 0 Total 0 I personally scribed for MICA SANCHES MD ([email or web address]) on 10/10/24 at 19:04. Electronically submitted by Orlando Bynum ([email or web address]). MICA SANCHES MD Oct 10, 2024 19:04
[2024-10-10 19:09] LABS: Urine Bacteria None Seen /hpf (None Seen)
[2024-10-10 19:28] LABS: Basophils # (auto) 0.2 10 ^3/uL (0-0.2); Basophils % (auto) 2.6 % (0.0-2.0); Eosinophils # (auto) 0.2 10 ^3/uL (0-0.8); Eosinophils % (auto) 2.1 % (0.0-7.0); Hemoglobin 14.4 g/dL (12.2-16.2); Lymphocytes # (auto) 1.9 10 ^3/uL (0.4-5.4); Lymphocytes % (auto) 20.6 % (10.0-50.0); Mean Corpuscular Hemoglobin 30.3 pg (28.0-32.0); Mean Corpuscular Hgb Conc. 32.7 g/dL (32.0-36.0); Mean Corpuscular Volume 92.9 fL (80.0-100.0); Monocytes # (auto) 0.9 10 ^3/uL (0-1.3); Monocytes % (auto) 10.1 % (0.0-12.0); Neutrophils % (auto) 64.6 % (37.0-80.0); Platelet Count (auto) 249 10^3/uL (140-450); Red Blood Cells 4.74 10^6/uL (4.0-5.20); White Blood Cell 9.2 10^3/uL (4.4-10.8)
[2024-10-10 19:29] LABS: Urine Blood Negative /uL (Negative); Urine Clarity Clear (Clear); Urine Color Colorless (Yellow); Urine Protein, UAD Negative (Negative); Urine Specific Gravity 1.007 (1.001-1.035); Urine Squamous Epithelial Cell FEW /hpf (<5); Urine Urobilinogen Normal (Negative); Urine WBC 1 /HPF (0-5); Urine pH 5.5 (5.0-9.0)
[2024-10-10 19:30] VITALS: O2SAT 97
[2024-10-10 19:41] LABS: Chloride 104 mmol/L (98-107); Potassium 3.6 mmol/L (3.5-5.1); Sodium 139 mmol/L (136-145)
[2024-10-10 19:42] LABS: Anion Gap 11 (5-15); Carbon Dioxide 24 mmol/L (20-31)
[2024-10-10 19:44] LABS: Calcium 10.5 mg/dL (8.7-10.4)
[2024-10-10 19:48] LABS: BUN/Creatinine Ratio 13.8 (10.0-20.0); Blood Urea Nitrogen 20 mg/dL (9-23); Glucose 113 mg/dL (74-106)
[2024-10-10] MEDS ORDERED: ACETAMINOPHEN 325 MG TAB PO PRN (21:30)
[2024-10-10] MEDS ORDERED: ONDANSETRON HCL 4 MG/2 ML VIAL IV PRN (21:30)
[2024-10-10] MEDS: SODIUM CHLORIDE 0.9% 500 ML IVB ONE (21:34)
--- NOTE | 2024-10-10 22:20 | DVH ---
Exam: CT CT AB PEL WO CON-NO ORAL OR IV History: recurrent UTI Comparison Study: None available at time of dictation. Technique: Multidetector spiral CT of the abdomen was performed from lung bases to iliac crest. Imagi ng was performed without IV contrast. Axial, coronal and sagittal multiplanar reformats were obtained from the axial data set by the technologist. Radiation Dose : CT Dose: CTDI volume is 23.72 mGy. Dose-length product is 1321.58 mGy*cm Findings: Evaluation of solid organs is limited due to lack of intravenous contrast use. Lung Bases: No acute or significant lung base finding. Normal heart size. No pleural or pericardial effusion. Liver: The liver is normal in size. No focal lesions. Gallbladder and Biliary Tree: Unremarkable status post cholecystectomy. Spleen: Unremarkable Pancreas: There is mild diffuse fatty replacement of the pancreatic parenchyma. Adrenal Glands: Unremarkable Kidneys: Moderate left renal atrophy and cortical scarring without evidence of nephrolithiasis or hyd ronephrosis. The right kidney is grossly normal without calculi or hydronephrosis. Visualized Bowel: There is a moderate hiatal hernia. The stomach is grossly normal in appearance. Sma ll bowel and colon are normal in caliber and distribution. Diverticulosis coli The appendix is not de finitely identified, however, there are no secondary signs of acute appendicitis. Reproductive: Status post hysterectomy. Right adnexal cystic structures near water attenuation, the l argest of which measures 3.8 cm, likely representing ovarian cysts. Ascites: Absent Lymphadenopathy: No mesenteric, retroperitoneal or periportal lymphadenopathy. Abdominal Wall and Mesentery: Unremarkable. Small fat containing umbilical hernia. Vasculature: The visualized abdominal aorta is normal in size and caliber. Atherosclerotic vascular c alcifications are present within the coronary arterial vasculature, aorta and major branching vessels . Evaluation of abdominal and pelvic vessels is limited due to lack of intravenous contrast. Musculoskeletal: No aggressive focal bony lesions, acute fractures or dislocation. IMPRESSION: 1. No acute abdominal finding. 2. Probable right ovarian cysts. Radiation optimization: All CT scans at this facility use at least one of these dose optimization jhonny hniques: automated exposure control mA and/or kV adjustment per patient size (includes targeted exam s where dose is matched to clinical indication) or iterative reconstruction.
[2024-10-10 22:22] LABS: HDL Cholesterol 43 mg/dL (40-59); LDL Cholesterol 152 mg/dL (< 100); Triglycerides 200 mg/dL (< 150)
[2024-10-10 22:22] LABS: Barbiturate Scree,Urine Neg (NEGATIVE); Opiate Scree,Urine Neg (NEGATIVE)
[2024-10-10 22:23] LABS: Cholesterol 225 mg/dL (< 200)
[2024-10-10 22:23] LABS: Amphetamine Screen, Urine Neg (NEGATIVE); Benzodiazephine Screen, Urine Neg (NEGATIVE); Cannabinoid Screen, Urine Neg (NEGATIVE); Cocaine Screen, Urine Neg (NEGATIVE); Phencyclidine Screen, Urine Neg (NEGATIVE)
[2024-10-10] MEDS: PANTOPRAZOLE 40 MG/10 ML VIAL INJ IV ONE (22:52)
[2024-10-10] MEDS: ONDANSETRON HCL 4 MG/2 ML VIAL IV ONE (22:53)
[2024-10-10] MEDS: ACETAMINOPHEN 325 MG TAB PO ONE (22:53)
[2024-10-10] MEDS ORDERED: hydrALAZINE HCL 20 MG/ML VL IV PRN (23:15)
[2024-10-10] MEDS: cefTRIAXone 1GM/50ML D5W 50 ML IV ONE (23:17)
[2024-10-11] VITALS (12 sets, daily range): BP systolic 120–157; BP diastolic 53–66; PULSE 67–101; RESP 16–21; TEMP 97.2–98.4; O2SAT 91–99
[2024-10-11] MEDS: ATORVASTATIN 20 MG TAB PO ONE (00:22)
[2024-10-11] MEDS: ENOXAPARIN SOD 30 MG/0.3 ML SYRINGE SC ONE (00:26)
--- NOTE | 2024-10-11 00:30 | DVHHPRES ---
History of Present Illness Resident Creating Document: LEAH TRINIDAD RESIDENT Reason for Visit: burning urination and weakness History of Present Illness Patient is an 84-year-old female with a recent history of UTI presented to the ED with a chief complaint of generalized weakness, dysuria, nausea, and vomiting since this morning. Patient said that she was recent seen at her PCP's office for symptoms of UTI. She was prescribed Cipro 250mg bid for 5 days. Patient took the medication for 3 days but started have palpitation and dizziness.She stopped taking it and came to the the ED. Patient states that she has a "bad UTI" that she is not getting better. Patient reports that it is painful to urinate and has been having constant nausea and vomiting. Patient denied gross hematuria, fatigue, chest pain and shortness of breath. Of note, this is the second UTI infection thus far this year. In 09/2022, patient was admitted and managed for sepsis due to UTI. She follows with a urology for the recurrent UTI and was given an estrogen cream to apply. Patient mentioned that when she was on the estrogen cream, she did not get a UTI. But now due to the high cost the estrogen cream, she has being unable to afford it. PMHx: Asthma, DM, High Lipids, HTN, hypothyroidism PSHX: Appendectomy, Cholecystectomy, Hysterectomy, Tonsillectomy FHX: Noncontributory to illness SHX: lives at home alone. denied any drug use Review of Systems Constitutional: Yes: Weakness Eyes: No: Pain, Vision change, Conjunctivae inflammation, Eyelid inflammation, Other, Redness ENT: No: Ear pain, Ear discharge, Nose pain, Nose discharge, Nose congestion, Mouth pain, Mouth swelling, Throat pain, Throat swelling, Other Respiratory: No: Cough, Dry, Shortness of breath, SOB with excertion, Wheezing, Hemoptysis, Pleuritic Pain, Sputum, Wheezing, Other Cardiovascular: No: Chest Pain, Palpitations, Orthopnea, Paroxysmal Noc. Dyspnea, Edema, Lt Headedness, Other Gastrointestinal: Nausea, Vomiting, Abdominal Pain, Other Genitourinary: Dysuria, Frequency Musculoskeletal: No: other, neck pain, shoulder pain, arm pain, back pain, hand pain, leg pain, foot pain Skin: No: Rash, Lesions, Jaundice, Bruising, Other Neurological: Weakness Allergies: Coded Allergies: NO KNOWN ALLERGIES (Unverified , 10/04/22) Medications Current Medications Medications Dose Ordered Sig/Bailee Route Start Time Stop Time Status Last Admin Dose Admin Acetaminophen 650 mg Q6HP PRN PO 10/10/24 21:30 Ondansetron HCl 4 mg Q6HPRN PRN IV 10/10/24 21:30 Pantoprazole Sodium 40 mg DAILY IV 10/11/24 10:00 Ceftriaxone Sodium 50 ml @ 100 mls/hr DAILY@2100 IV 10/11/24 21:00 Hydralazine HCl 10 mg Q6HP PRN IV 10/10/24 23:15 Enoxaparin Sodium 40 mg DAILY SC 10/11/24 10:00 UNV Exam Vital Signs Vital Signs Date Time Temp Pulse Resp B/P (MAP) Pulse Ox O2 Delivery O2 Flow Rate FiO2 10/10/24 23:28 97.6 64 20 126/81 (96) 97 97.6 10/10/24 19:30 Room Air* 0 21 Exam General: Alert and oriented, mild distress from urgency and frequency HEENT: Atraumatic, Chest: S1 and S2 normal. No murmurs Lung: Adequate air entry Abdomen: mildly distended, bowel sound present, very mild costophrenic angle tenderness ( right) : tenderness in the lower abdomen SKIN: Unremarkable Neuro: walks with a walker at home Extremities: Pitting Edema, left ankle tenderness ? due to trauma Labs/Xrays Labs Test 10/10/24 19:17 10/10/24 18:50 Range/Units White Blood Count 9.2 4.4-10.8 10^3/uL Red Blood Count 4.74 4.0-5.20 10^6/uL Hemoglobin 14.4 12.2-16.2 g/dL Hematocrit 44.0 36.0-46.0 % Mean Corpuscular Volume 92.9 80.0-100.0 fL Mean Corpuscular Hemoglobin 30.3 28.0-32.0 pg Mean Corpuscular Hemoglobin Concent 32.7 32.0-36.0 g/dL Red Cell Distribution Width 13.0 11.8-14.3 % Platelet Count 249 140-450 10^3/uL Mean Platelet Volume 8.5 6.9-10.8 fL Neutrophils (%) (Auto) 64.6 37.0-80.0 % Lymphocytes (%) (Auto) 20.6 10.0-50.0 % Monocytes (%) (Auto) 10.1 0.0-12.0 % Eosinophils (%) (Auto) 2.1 0.0-7.0 % Basophils (%) (Auto) 2.6 H 0.0-2.0 % Neutrophils # (Auto) 6.0 1.6-8.6 10 ^3/uL Lymphocytes # (Auto) 1.9 0.4-5.4 10 ^3/uL Monocytes # (Auto) 0.9 0-1.3 10 ^3/uL Eosinophils # (Auto) 0.2 0-0.8 10 ^3/uL Basophils # (Auto) 0.2 0-0.2 10 ^3/uL Nucleated Red Blood Cells 0.0 % Sodium Level 139 136-145 mmol/L Potassium Level 3.6 3.5-5.1 mmol/L Chloride Level 104 98-107 mmol/L Carbon Dioxide Level 24 20-31 mmol/L Anion Gap 11 5-15 Blood Urea Nitrogen 20 9-23 mg/dL Creatinine 1.45 H 0.550-1.02 mg/dL Glomerular Filtration Rate Calc 35 >90 mL/min BUN/Creatinine Ratio 13.8 10.0-20.0 Serum Glucose 113 H 74-106 mg/dL Lactic Acid Level 1.2 0.4-2.0 mmol/L Calcium Level 10.5 H 8.7-10.4 mg/dL B-Type Natriuretic Peptide 100.49 0-100 pg/mL Triglycerides Level 200 H < 150 mg/dL Cholesterol Level 225 H < 200 mg/dL LDL Cholesterol 152 H < 100 mg/dL HDL Cholesterol 43 40-59 mg/dL Thyroid Stimulating Hormone (TSH) 1.61 0.55-4.78 uIU/mL Urine Color Colorless Yellow Urine Clarity Clear Clear Urine pH 5.5 5.0-9.0 Urine Specific [place] 1.007 1.001-1.035 Urine Protein Negative Negative Urine Ketones Negative Negative Urine Blood Negative Negative /uL Urine Nitrite Negative Negative Urine Bilirubin Negative Negative Urine Urobilinogen Normal Negative mg/dL Urine Leukocyte Esterase Trace Negative /uL Urine RBC 1 0 - 4 /hpf Urine Microscopic WBC 1 0-5 /HPF Urine Squamous Epithelial Cells Few <5 /hpf Urine Bacteria None seen None Seen /hpf Urine Glucose Normal Normal mg/dL Urine Opiates Screen Neg NEGATIVE Urine Fentanyl Screen Pos NEGATIVE Urine Barbiturates Screen Neg NEGATIVE Urine Phencyclidine Screen Neg NEGATIVE Urine Amphetamines Screen Neg NEGATIVE Urine Benzodiazepines Screen Neg NEGATIVE Urine Cocaine Screen Neg NEGATIVE Urine Cannabinoids Screen Neg NEGATIVE Assessment/Plan Assessment/Plan Assessment Recurrent UTI Diabetes Mellitus, A1C 6.2 could be due to worsening CKD CKD stage 3 mild hypercalcemia Vitamin D deficiency Dehydration GERD Right ovarian cyst Mixed Hyperlipidemia ( advanced age, No need for statin) Isolated basophil osteoarthritis Hypothyroidism History of sepsis due to UTI ( 09/2022) Obesity grade II Asthma mixed Urinary incontinence ( urge and overflow) Plan admit IV antibiotic ( ceftriaxone) Obtain: PTH, Vitamin D, Phosphate ( if high add sevelamer) TSH normal; counseled patient to take levothyroxine on an empty stomach add protonix Hold vitamin D replacement for now Continue home medication except antibiotics Repeat AM labs Avoid nephrotoxic agents Follows with the urologist outpatient DVT prophylaxis; lovenox GI prophylaxis: protonix Diet: Diabetic diet Goal of care discussed for more than 30 minutes: full code case and place discussed with Dr. Soto Plan discussed with: Patient My Orders Orders - LEAH TRINIDAD RESIDENT Procedure Category Date Status Time Urine Bacterial TYSON 10/10/24 In Process Culture 21:22 Echo 2d Mode Cardiac US 10/10/24 Logged DOP 21:22 Acetaminophen Tablet PHA 10/10/24 In Process (Tylenol Tablet) 21:30 Ondansetron Hcl PHA 10/10/24 In Process (Zofran) 21:30 Pantoprazole PHA 10/11/24 In Process (Protonix) 10:00 Ct Ab Pel Wo Con-No CT 10/10/24 Resulted Oral Or Iv 21:22 Basic Metabolic Panel LAB 10/11/24 Logged 04:00 Complete Blood Count LAB 10/11/24 Logged 04:00 Ceftriaxone 1gm/50ml PHA 10/11/24 In Process D5w (Rocephin) 21:00 Hydralazine Injection PHA 10/10/24 In Process (Apresoline Inject 23:15 Admit ADMIT 10/11/24 Transmitted 00:07 Code Status CODE 10/11/24 Transmitted 00:07 Vital Signs FRANK 10/11/24 In Process 00:07 Review Orders With FRANK 10/11/24 In Process Adm. 00:07 Notify Of Changes FRANK 10/11/24 In Process From Base 00:07 Advance Directive FRANK 10/11/24 In Process 00:07 Patient Condition ORDERS 10/11/24 Transmitted 00:07 Allergies FRANK 10/11/24 In Process 00:07 Notify Of Changes [facility] 10/11/24 In Process From Base 00:07 Enoxaparin Sodium PHA 10/11/24 Logged (Lovenox) 00:15 Enoxaparin Sodium PHA 10/11/24 Logged (Lovenox) 10:00 Regular Diet DIET 10/11/24 Transmitted Breakfast Date of Service: Oct 11, 2024 Billing Provider: KRYSTINA SOTO MD Common Visit Codes: 89807-WBMUSMF INP/OBS CARE (HIGH) Secondary Visit Codes: 28230-LHIWGMEM CARE PLAN 30 MINUTES LEAH TRINIDAD RESIDENT Oct 11, 2024 00:30 KRYSTINA SOTO MD Oct 11, 2024 11:00
[2024-10-11] MEDS ORDERED: LEVO-177 PO (02:15)
[2024-10-11] MEDS ORDERED: MONT-8 PO (02:16)
[2024-10-11] MEDS ORDERED: DICY20TA PO (02:16)
[2024-10-11] MEDS: hydroCHLOROthiazide 25 MG TAB PO ONE (06:21)
[2024-10-11 07:53] LABS: Basophils # (auto) 0.2 10 ^3/uL (0-0.2); Basophils % (auto) 1.9 % (0.0-2.0); Eosinophils # (auto) 0.2 10 ^3/uL (0-0.8); Eosinophils % (auto) 2.7 % (0.0-7.0); Hematocrit 42.2 % (36.0-46.0); Hemoglobin 14.1 g/dL (12.2-16.2); Lymphocytes # (auto) 2.3 10 ^3/uL (0.4-5.4); Lymphocytes % (auto) 27.9 % (10.0-50.0); Mean Corpuscular Hemoglobin 30.8 pg (28.0-32.0); Mean Corpuscular Hgb Conc. 33.5 g/dL (32.0-36.0); Mean Corpuscular Volume 91.8 fL (80.0-100.0); Monocytes # (auto) 0.9 10 ^3/uL (0-1.3); Monocytes % (auto) 11.5 % (0.0-12.0); Neutrophils # (auto) 4.6 10 ^3/uL (1.6-8.6); Nucleated Red Blood Cells % 0.1 %; Platelet Count (auto) 246 10^3/uL (140-450); Red Cell Distribution Width 12.9 % (11.8-14.3); White Blood Cell 8.1 10^3/uL (4.4-10.8)
[2024-10-11 08:15] LABS: Anion Gap 12 (5-15); Carbon Dioxide 25 mmol/L (20-31); Chloride 104 mmol/L (98-107); Potassium 3.6 mmol/L (3.5-5.1); Sodium 141 mmol/L (136-145)
[2024-10-11 08:16] LABS: Calcium 10.2 mg/dL (8.7-10.4)
[2024-10-11 08:22] LABS: BUN/Creatinine Ratio 12.1 (10.0-20.0); Blood Urea Nitrogen 17 mg/dL (9-23)
[2024-10-11 08:26] LABS: Glucose 135 mg/dL (74-106)
[2024-10-11] MEDS: ENOXAPARIN SOD 30 MG/0.3 ML SYRINGE SC SCH (10:00)
[2024-10-11] MEDS ORDERED: PANTOPRAZOLE 40 MG/10 ML VIAL INJ IV SCH (10:00)
[2024-10-11] MEDS ORDERED: OMEPRAZOLE-SOD BICARB 20 MG POWDER PO SCH (10:00)
[2024-10-11] MEDS: VALSARTAN 80 MG TAB PO SCH (10:01)
--- NOTE | 2024-10-11 10:26 | DVHSR ---
APPROVED REPORT EXAM: Two-dimensional and M-mode echocardiogram with Doppler and color Doppler. Blood Pressure: 120/66 mmHg INDICATION Pitting edema RISK FACTORS Height: 67, Weight: 221 DIMENSIONS LVDd4.5 (3.8-5.7cm)LA (2D)4.4 (1.9-4.0cm)Aortic Root3.2 (2.0-3.7cm) LVDs3.1 (2.5-4.0cm)LA (MM) (1.9-4.0cm)Aortic Cusp Exc1.6 (1.5-2.0cm) EF (%) 60.0 (55-70%)Rt. Atrium3.8 (1.9-4.0cm)Asc. Aorta cm IVSd1.1 (0.7-1.1cm)RV (D) (1.8-2.4cm) PWd1.1 (0.7-1.1cm) Mitral Valve MitralMitral Stenosis E wave0.93m/sMV Mean GR.5mmHg A wave1.48m/sMV Peak GR.52mmHg E/A ratio0.62D MVAcm2 DECEL [id number] 1/2 Timems Aortic Valve Aortic ValveAortic Stenosis V11.23m/Farrukh Mean GR.3mmHg V21.27m/Farrukh Peak GR.6mmHg LVOT Diameter1.6 (1.8-2.4cm)Doppler AVA1.95cm2 Pulmonic Valve V21.09m/s Tricuspid Valve TR Velocity2.86m/s [id number] Conclusion lvef 80% by visual estimate mild LVH hyperdynamic LV normal rv functioon moderate left atrium enlarged no severe valve abnormalities noted moderate MAC noted mild mitral regurg
[2024-10-11] MEDS: PANTOPRAZOLE 40 MG TAB PO SCH (10:29)
[2024-10-11] MEDS: ALBUTEROL SULF 2.5 MG/0.5ML(0.5%) NEB SOLN NEB PRN (11:09)
[2024-10-11] MEDS: diphenhdrAMINE HCL 25 MG CAP PO ONE (11:45)
[2024-10-11] MEDS: LORazepam 0.5 MG TAB PO ONE (11:45)
[2024-10-11] MEDS ORDERED: CEFP200T15 PO (12:13)
--- NOTE | 2024-10-11 17:06 | DVHDSRES ---
Discharge Summary Date of Admission Resident Creating Document: GEREMIAS DIXON RESIDENT Oct 11, 2024 at 00:07 Date of Discharge: Oct 11, 2024 Admitting Diagnosis UTI Labs/Diagnostic Data: Laboratory Results Test 10/11/24 07:12 10/11/24 02:20 10/10/24 19:17 10/10/24 18:50 White Blood Count 8.1 10^3/uL (4.4-10.8) Red Blood Count 4.60 10^6/uL (4.0-5.20) Hemoglobin 14.1 g/dL (12.2-16.2) Hematocrit 42.2 % (36.0-46.0) Mean Corpuscular Volume 91.8 fL (80.0-100.0) Mean Corpuscular Hemoglobin 30.8 pg (28.0-32.0) Mean Corpuscular Hemoglobin Concent 33.5 g/dL (32.0-36.0) Red Cell Distribution Width 12.9 % (11.8-14.3) Platelet Count 246 10^3/uL (140-450) Mean Platelet Volume 8.9 fL (6.9-10.8) Neutrophils (%) (Auto) 56.0 % (37.0-80.0) Lymphocytes (%) (Auto) 27.9 % (10.0-50.0) Monocytes (%) (Auto) 11.5 % (0.0-12.0) Eosinophils (%) (Auto) 2.7 % (0.0-7.0) Basophils (%) (Auto) 1.9 % (0.0-2.0) Neutrophils # (Auto) 4.6 10 ^3/uL (1.6-8.6) Lymphocytes # (Auto) 2.3 10 ^3/uL (0.4-5.4) Monocytes # (Auto) 0.9 10 ^3/uL (0-1.3) Eosinophils # (Auto) 0.2 10 ^3/uL (0-0.8) Basophils # (Auto) 0.2 10 ^3/uL (0-0.2) Nucleated Red Blood Cells 0.1 % Sodium Level 141 mmol/L (136-145) Potassium Level 3.6 mmol/L (3.5-5.1) Chloride Level 104 mmol/L (98-107) Carbon Dioxide Level 25 mmol/L (20-31) Anion Gap 12 (5-15) Blood Urea Nitrogen 17 mg/dL (9-23) Creatinine 1.41 mg/dL (0.550-1.02) Glomerular Filtration Rate Calc 37 mL/min (>90) BUN/Creatinine Ratio 12.1 (10.0-20.0) Serum Glucose 135 mg/dL (74-106) Calcium Level 10.2 mg/dL (8.7-10.4) Phosphorus Level 3.2 mg/dL (2.4-5.1) Parathyroid Hormone (Intact) 119.8 pg/mL (18.4-80.1) Lactic Acid Level 1.2 mmol/L (0.4-2.0) B-Type Natriuretic Peptide 100.49 pg/mL (0-100) Triglycerides Level 200 mg/dL (< 150) Cholesterol Level 225 mg/dL (< 200) LDL Cholesterol 152 mg/dL (< 100) HDL Cholesterol 43 mg/dL (40-59) Thyroid Stimulating Hormone (TSH) 1.61 uIU/mL (0.55-4.78) Urine Color Colorless (Yellow) Urine Clarity Clear (Clear) Urine pH 5.5 (5.0-9.0) Urine Specific [place] 1.007 (1.001-1.035) Urine Protein Negative (Negative) Urine Ketones Negative (Negative) Urine Blood Negative /uL (Negative) Urine Nitrite Negative (Negative) Urine Bilirubin Negative (Negative) Urine Urobilinogen Normal mg/dL (Negative) Urine Leukocyte Esterase Trace /uL (Negative) Urine RBC 1 /hpf (0 - 4) Urine Microscopic WBC 1 /HPF (0-5) Urine Squamous Epithelial Cells Few /hpf (<5) Urine Bacteria None seen /hpf (None Seen) Urine Glucose Normal mg/dL (Normal) Urine Opiates Screen Neg (NEGATIVE) Urine Fentanyl Screen Pos (NEGATIVE) Urine Barbiturates Screen Neg (NEGATIVE) Urine Phencyclidine Screen Neg (NEGATIVE) Urine Amphetamines Screen Neg (NEGATIVE) Urine Benzodiazepines Screen Neg (NEGATIVE) Urine Cocaine Screen Neg (NEGATIVE) Urine Cannabinoids Screen Neg (NEGATIVE) Other Laboratory Tests 10/11/24 07:12 Brief Hx & Hospital Course: Patient is an 84-year-old female with a recent history of UTI presented to the ED with a chief complaint of generalized weakness, dysuria, nausea, and vomiting since this morning. PMHx: Asthma, DM, High Lipids, HTN, hypothyroidism PSHX: Appendectomy, Cholecystectomy, Hysterectomy, Tonsillectomy FHX: Noncontributory to illness SHX: lives at home alone. denied any drug use Patient said that she was recent seen at her PCP's office for symptoms of UTI. She was prescribed Cipro 250mg bid for 5 days. Patient took the medication for 3 days but started have palpitation and dizziness.She stopped taking it and came to the the ED. Patient states that she has a "bad UTI" that she is not getting better. Patient reports that it is painful to urinate and has been having constant nausea and vomiting. Patient denied gross hematuria, fatigue, chest pain and shortness of breath. Of note, this is the second UTI infection thus far this year. In 09/2022, patient was admitted and managed for sepsis due to UTI. She follows with a urology for the recurrent UTI and was given an estrogen cream to apply. Patient mentioned that when she was on the estrogen cream, she did not get a UTI. But now due to the high cost the estrogen cream, she has being unable to afford it. On my initial assessment, patient states feeling better than on admission, she currently denied any significant shortness of breath, chest pain, dizziness, lightheadedness, nausea, vomiting, abdominal pain, dysuria, urinary frequency, urinary urgency, patient is currently tolerating diet, ambulatory, independent. Patient's urine culture shows no bacterial growth. Vital signs are unremarkable. Physical examination as below: General: Awake, alert, comfortable appearing, in no acute distress. HEENT: Head is normocephalic and atraumatic. Pupils are equal, round, and reactive to light. Extraocular muscles are intact. No nasal discharge. No facial trauma. Intraoral exam shows moist mucous membranes with no tonsillar enlargement or exudate. Neck: Supple with no cervical lymphadenopathy No meningismus. No goiter. Heart: Regular rate without murmur, rub, or gallop. Lungs: Equal breath sounds bilaterally with no wheezing, rales, or rhonchi. There is no chest wall tenderness or instability. Abdomen: No external sign of injury. Bowel sounds are present. Abdomen is soft, nontender. No rebound, no guarding, no rigidity. There are no palpable masses. There is no flank pain on exam. Extremities: Strong peripheral pulses. There is no clubbing, no cyanosis, and no edema. Skin: No rash. Neurologic: Cranial nerves II-XII intact without motor, sensory, or cerebellar deficit, no asterixis. Patient will be discharged home on continue home medications as prescribed. She will continue taking cefpodoxime 200 mg p.o. b.i.d. for next seven days. Patient will follow with her PCP within 1-2 weeks. Patient verbalized understanding and agree with the DC plan, we spent over 30 minutes explaining the plan. Case was discussed with Dr. Soto Operations or Procedures [place] [address] Ph: [phone] DIAGNOSTIC IMAGING Diagnostic Imaging Report : [id number] Signed PATIENT: CLAIRE MENARD ACCT: [id number] UNIT: [id number] : 1940 LOC: [facility] ROOM / BED: [address] [place] [address] AGE / SEX: 84 / F ADM STATUS: ADM IN SERVICE 21 ORDERING PHYSICIAN: LEAH TRINIDAD RESIDENT PROCEDURE(s): ECIDC - ECHO 2D MODE CARDIAC DOP REASON: Pitting Edema ORDER NUMBER(s): [id number], ACCESSION NUMBER(s): [id number] APPROVED REPORT EXAM: Two-dimensional and M-mode echocardiogram with Doppler and color Doppler. Blood Pressure: 120/66 mmHg INDICATION Pitting edema RISK FACTORS Height: 67, Weight: 221 DIMENSIONS LVDd 4.5 (3.8-5.7cm) LA (2D) 4.4 (1.9-4.0cm) Aortic Root 3.2 (2.0- 3.7cm) LVDs 3.1 (2.5-4.0cm) LA (MM) (1.9-4.0cm) Aortic Cusp Exc 1.6 (1.5- 2.0cm) EF (%) 60.0 (55-70%) Rt. Atrium 3.8 (1.9-4.0cm) Asc. Aorta cm IVSd 1.1 (0.7-1.1cm) RV (D) (1.8-2.4cm) PWd 1.1 (0.7-1.1cm) Mitral Valve Mitral Mitral Stenosis E wave 0.93m/s MV Mean GR. 5mmHg A wave 1.48m/s MV Peak GR. 52mmHg E/A ratio 0.6 2D MVA cm2 DECEL Time 177ms PRESS 1/2 Time ms Aortic Valve Aortic Valve Aortic Stenosis V1 1.23m/s AO Mean GR. 3mmHg V2 1.27m/s AO Peak GR. 6mmHg LVOT Diameter 1.6 (1.8-2.4cm) Doppler DARINEL 1.95cm2 Pulmonic Valve V2 1.09m/s Tricuspid Valve TR Velocity 2.86m/s RVSP 42mmHg Conclusion lvef 80% by visual estimate mild LVH hyperdynamic LV normal rv functioon moderate left atrium enlarged no severe valve abnormalities noted moderate MAC noted mild mitral regurg SIGNED BY: JAME HILL MD SIGNED DATE/TIME: 10/11/24 1026 CC: [place] [address] Ph: [phone] DIAGNOSTIC IMAGING Diagnostic Imaging Report : [id number] Signed PATIENT: CLAIRE MENARD ACCT: [id number] UNIT: [id number] : 1940 LOC: ER ROOM / BED: / AGE / SEX: 84 / F ADM STATUS: REG ER SERVICE 21 ORDERING PHYSICIAN: LEAH TRINIDAD PROCEDURE(s): ABPL - CT AB PEL WO CON-NO ORAL OR IV REASON: recurrent UTI ORDER NUMBER(s): [id number], ACCESSION NUMBER(s): [id number] Exam: CT CT AB PEL WO CON-NO ORAL OR IV History: recurrent UTI Comparison Study: None available at time of dictation. Technique: Multidetector spiral CT of the abdomen was performed from lung bases to iliac crest. Imaging was performed without IV contrast. Axial, coronal and sagittal multiplanar reformats were obtained from the axial data set by the technologist. Radiation Dose : CT Dose: CTDI volume is 23.72 mGy. Dose-length product is 1321.58 mGy*cm Findings: Evaluation of solid organs is limited due to lack of intravenous contrast use. Lung Bases: No acute or significant lung base finding. Normal heart size. No pleural or pericardial effusion. Liver: The liver is normal in size. No focal lesions. Gallbladder and Biliary Tree: Unremarkable status post cholecystectomy. Spleen: Unremarkable Pancreas: There is mild diffuse fatty replacement of the pancreatic parenchyma. Adrenal Glands: Unremarkable Kidneys: Moderate left renal atrophy and cortical scarring without evidence of nephrolithiasis or hydronephrosis. The right kidney is grossly normal without calculi or hydronephrosis. Visualized Bowel: There is a moderate hiatal hernia. The stomach is grossly normal in appearance. Small bowel and colon are normal in caliber and distribution. Diverticulosis coli The appendix is not definitely identified, however, there are no secondary signs of acute appendicitis. Reproductive: Status post hysterectomy. Right adnexal cystic structures near water attenuation, the largest of which measures 3.8 cm, likely representing ovarian cysts. Ascites: Absent Lymphadenopathy: No mesenteric, retroperitoneal or periportal lymphadenopathy. Abdominal Wall and Mesentery: Unremarkable. Small fat containing umbilical hernia. Vasculature: The visualized abdominal aorta is normal in size and caliber. Atherosclerotic vascular calcifications are present within the coronary arterial vasculature, aorta and major branching vessels. Evaluation of abdominal and pelvic vessels is limited due to lack of intravenous contrast. Musculoskeletal: No aggressive focal bony lesions, acute fractures or dislocation. IMPRESSION: 1. No acute abdominal finding. 2. Probable right ovarian cysts. Radiation optimization: All CT scans at this facility use at least one of these dose optimization techniques: automated exposure control mA and/or kV adjustment per patient size (includes targeted exams where dose is matched to clinical indication) or iterative reconstruction. ATED BY: AD MAYA MD DICTATED DATE/TIME: 10/10/242216 SIGNED BY: AD MAYA MD SIGNED DATE/TIME: 10/10/242216 CC: Condition at Discharge: Guarded Final Diagnosis/Problems List UTI Diabetes Mellitus CKD stage 3 mild hypercalcemia Vitamin D deficiency Dehydration GERD Right ovarian cyst Mixed Hyperlipidemia Isolated basophil osteoarthritis Hypothyroidism Obesity grade II Asthma mixed Urinary incontinence ( urge and overflow) Discharge Disposition: Home Discharge Instruct/Medications Diet: Cardiac 2g Na,low cholest Activity: No Restrictions, As Tolerated Follow Up/Referral: FU WITH PCP IN 1-2 WEEKS Medications: continue meds as prescribed continue cefpodoxime Discharge Statement: "Patient was advised to return to the ER or call 911 if any headaches, dizziness, shortness of breath, chest pain, abdominal pain, bleeding, fevers, or worsening of medical condition. Patient was counseled about treatment plan, medications, possible side effects, patientverbalized understanding. All questions were answered to the best of my ability. This discharge took greater then 30 minutes in planning, reviewing documentation, counseling the patient, and discussing with other team members." ASSESSMENT ASSESSMENT Assessment UTI Date of Service: Oct 11, 2024 Billing Provider: KRYSITNA SOTO MD Common Visit Codes: 54319-SOA/OBS DISCH DAY >30min GEREMIAS DIXON RESIDENT Oct 11, 2024 17:06 KRYSTINA SOTO MD Oct 12, 2024 14:52
[2024-10-11] MEDS ORDERED: cefTRIAXone 1GM/50ML D5W 50 ML IV SCH (21:00)
[2024-10-11] MEDS ORDERED: ATORVASTATIN 20 MG TAB PO SCH (22:00)
[2024-10-12] MEDS ORDERED: hydroCHLOROthiazide 25 MG TAB PO SCH (10:00)
== END 2024-10-11 14:55 | disposition home or self-care (01) | DRG 690 ==
LOC: ER 18:21 → EDBD 18:21 → OVERFLOW 10-11 00:07 → WEST WING 10-11 01:09
PROVIDERS: ADMIT Internal Medicine; ATTEND Internal Medicine
DX: N39.0 Urinary tract infection, site not specified (principal); N18.30 Chronic kidney disease, stage 3 unspecified; E83.52 Hypercalcemia; E86.0 Dehydration; E78.2 Mixed hyperlipidemia; E03.9 Hypothyroidism, unspecified; J45.909 Unspecified asthma, uncomplicated; E11.22 Type 2 diabetes mellitus with diabetic chronic kidney disease; I12.9 Hypertensive chronic kidney disease with stage 1 through stage 4 chronic kidney disease, or unspecified chronic kidney disease; N39.46 Mixed incontinence; K21.9 Gastro-esophageal reflux disease without esophagitis; N83.201 Unspecified ovarian cyst, right side; E66.812 Obesity, class 2; Z68.34 Body mass index [BMI] 34.0-34.9, adult; Z79.2 Long term (current) use of antibiotics; Z79.899 Other long term (current) drug therapy; Z90.49 Acquired absence of other specified parts of digestive tract
CPT/HCPCS: 36415; 74176; 80048; 80061; 80307; 81001; 83605; 83880; 83970; 84100; 84443; 85025; 87040; 87086; 93005; 93306; 94640; 96361; 96365; 96375; 97163; G0378; J2405; J2470

== ENCOUNTER → 2025-01-06 | Outpatient (CLI) | payer OTHER ==
[~2025-01-06] MED LIST changes: -AMOX500T86 PO; +CEFP200T15 PO; +DICY20TA PO; +LEVO-177 PO; +MONT-8 PO
[2025-01-06 10:47] LABS: Urine Bacteria None Seen /hpf (None Seen)
[2025-01-06 11:04] LABS: Basophils # (auto) 0.2 10 ^3/uL (0-0.2); Basophils % (auto) 2.3 % (0.0-2.0); Eosinophils # (auto) 0.1 10 ^3/uL (0-0.8); Eosinophils % (auto) 1.5 % (0.0-7.0); Hematocrit 43.4 % (36.0-46.0); Hemoglobin 14.8 g/dL (12.2-16.2); Lymphocytes # (auto) 2.5 10 ^3/uL (0.4-5.4); Lymphocytes % (auto) 30.1 % (10.0-50.0); Mean Corpuscular Hemoglobin 30.9 pg (28.0-32.0); Mean Corpuscular Hgb Conc. 34.1 g/dL (32.0-36.0); Mean Corpuscular Volume 90.7 fL (80.0-100.0); Monocytes # (auto) 0.8 10 ^3/uL (0-1.3); Neutrophils # (auto) 4.7 10 ^3/uL (1.6-8.6); Neutrophils % (auto) 56.1 % (37.0-80.0); Nucleated Red Blood Cells % 0.1 %; Platelet Count (auto) 271 10^3/uL (140-450); Red Blood Cells 4.78 10^6/uL (4.0-5.20); Red Cell Distribution Width 13.6 % (11.8-14.3); White Blood Cell 8.4 10^3/uL (4.4-10.8)
[2025-01-06 11:24] LABS: Urine Blood Negative /uL (Negative); Urine Clarity Clear (Clear); Urine Color Colorless (Yellow); Urine Protein, UAD Negative (Negative); Urine Specific Gravity 1.006 (1.001-1.035); Urine Squamous Epithelial Cell FEW /hpf (<5); Urine Urobilinogen Normal (Negative); Urine WBC 1 /HPF (0-5); Urine pH 5.5 (5.0-9.0)
[2025-01-06 11:28] LABS: Potassium 4.3 mmol/L (3.5-5.1)
[2025-01-06 11:32] LABS: Albumin 4.7 g/dL (3.2-4.8); Calcium 10.7 mg/dL (8.7-10.4)
[2025-01-06 11:36] LABS: BUN/Creatinine Ratio 14.4 (10.0-20.0); Phosphorus 3.2 mg/dL (2.4-5.1)
[2025-01-06 11:54] LABS: Uric Acid 6.7 mg/dL (3.1-7.8)
[2025-01-06 14:20] LABS: Creatinine, Urine 32.56 mg/dL (30.0-125.0); Urine Protein/Creatinine Ratio 0.18
[2025-01-06 14:22] LABS: Protein, Urine < 6.0 mg/dL (1-14)
[2025-01-06 14:23] LABS: Micro Albumin < 3.0 mg/L (<30.0)
== END | disposition home or self-care (01) ==
LOC: LAB 10:29
PROVIDERS: ATTEND Internal Medicine
DX: E11.22 Type 2 diabetes mellitus with diabetic chronic kidney disease (principal); N18.30 Chronic kidney disease, stage 3 unspecified; N39.0 Urinary tract infection, site not specified; R80.9 Proteinuria, unspecified; E21.3 Hyperparathyroidism, unspecified; M10.9 Gout, unspecified; E55.9 Vitamin D deficiency, unspecified; D63.1 Anemia in chronic kidney disease
CPT/HCPCS: 36415; 80069; 81001; 82043; 82570; 83970; 84156; 84550; 85025

== ENCOUNTER 2025-03-07 10:22 | Outpatient (CLI) | payer OTHER ==
[2025-03-07 11:02] LABS: Hematocrit 44.1 % (36.0-46.0); Hemoglobin 14.9 g/dL (12.2-16.2); Mean Corpuscular Hemoglobin 31.3 pg (28.0-32.0); Mean Corpuscular Volume 92.8 fL (80.0-100.0); Nucleated Red Blood Cells % 0.0 %
[2025-03-07 11:04] LABS: Urine Protein, UAD Negative (Negative)
[2025-03-07 11:22] LABS: Microalb/Creat Ratio, Urine 5.00
[2025-03-07 11:24] LABS: Alanine Aminotransferase 21 U/L (7-40); Albumin 4.6 g/dL (3.2-4.8); Alkaline Phosphatase 75 U/L (46-116); Anion Gap 8 (5-15); BUN/Creatinine Ratio 12.7 (10.0-20.0); Blood Urea Nitrogen 17 mg/dL (9-23); Calcium 9.7 mg/dL (8.7-10.4); Carbon Dioxide 28 mmol/L (20-31); Chloride 100 mmol/L (98-107); HDL Cholesterol 50 mg/dL (40-59); Potassium 3.9 mmol/L (3.5-5.1); Sodium 136 mmol/L (136-145); Total Protein 6.4 g/dL (5.7-8.2); Triglycerides 110 mg/dL (< 150)
[2025-03-07 11:25] LABS: Bilirubin, Total 0.9 mg/dL (0.2-1.0)
[2025-03-07 11:26] LABS: Cholesterol 221 mg/dL (< 200); Glucose 114 mg/dL (74-106)
[2025-03-07 12:24] LABS: Uric Acid 6.4 mg/dL (3.1-7.8)
[2025-03-07 12:42] LABS: Urine Protein, UAD Negative (Negative)
== END 2025-03-07 17:00 | disposition home or self-care (01) ==
LOC: LAB 10:22
PROVIDERS: ATTEND Internal Medicine
DX: I12.9 Hypertensive chronic kidney disease with stage 1 through stage 4 chronic kidney disease, or unspecified chronic kidney disease (principal); E11.9 Type 2 diabetes mellitus without complications; N18.32 Chronic kidney disease, stage 3b; E03.9 Hypothyroidism, unspecified; E21.3 Hyperparathyroidism, unspecified; E55.9 Vitamin D deficiency, unspecified; N39.0 Urinary tract infection, site not specified; D63.1 Anemia in chronic kidney disease; M10.9 Gout, unspecified; R80.9 Proteinuria, unspecified
CPT/HCPCS: 36415; 80053; 80061; 80069; 81001; 81003; 82043; 82570; 83036; 83970; 84443; 84550; 85025

== ENCOUNTER → 2025-04-08 | Outpatient (CLI) | payer OTHER ==
--- NOTE | 2025-04-08 13:28 | DVH ---
EXAM: NM PARATHYROID HISTORY: HYPERPARATHYROIDISM COMPARISON: None TECHNIQUE: 20.6 mCi of Technetium 99M-Sestamibi were injected intravenously. Planar scintigraphic images of the head, neck, and chest were obtained at 10 minutes and 3 hours pos t Sestamibi injection. FINDINGS: On the initial image, there is expected uptake in the thyroid and salivary glands. On the delayed im age, there is persistent uptake in the submandibular glands and low residual uptake in the thyroid be d. No focal areas of increased uptake are identified to suggest parathyroid adenoma. IMPRESSION: No scintigraphic evidence of parathyroid adenoma.
== END | disposition home or self-care (01) ==
LOC: XYW 09:13
PROVIDERS: ATTEND Nurse Practitioner Family
DX: E21.3 Hyperparathyroidism, unspecified (principal)
CPT/HCPCS: 78070; A9500

== ENCOUNTER 2025-07-18 10:53 | Outpatient (CLI) | payer OTHER ==
[2025-07-18 11:49] LABS: Hematocrit 43.3 % (36.0-46.0); Hemoglobin 14.4 g/dL (12.2-16.2); Mean Corpuscular Hemoglobin 30.4 pg (28.0-32.0); Mean Corpuscular Volume 91.4 fL (80.0-100.0); Nucleated Red Blood Cells % 0.0 %
[2025-07-18 12:06] LABS: Urine Protein, UAD Negative (Negative)
[2025-07-18 12:16] LABS: Albumin 4.6 g/dL (3.2-4.8); Anion Gap 9.0 (5-15); BUN/Creatinine Ratio 8.2 (10.0-20.0); Blood Urea Nitrogen 11.0 mg/dL (9-23); Calcium 10.1 mg/dL (8.7-10.4); Carbon Dioxide 28.0 mmol/L (20-31); Chloride 99.0 mmol/L (98-107); Glucose 112.0 mg/dL (74-106); Potassium 3.8 mmol/L (3.5-5.1); Sodium 136.0 mmol/L (136-145)
[2025-07-18 12:27] LABS: Microalb/Creat Ratio, Urine 4.0
[2025-07-18 12:37] LABS: Uric Acid 6.3 mg/dL (3.1-7.8)
== END 2025-07-18 17:00 | disposition home or self-care (01) ==
LOC: LAB 10:53
PROVIDERS: ATTEND Nurse Practitioner Family
DX: E11.22 Type 2 diabetes mellitus with diabetic chronic kidney disease (principal); N18.30 Chronic kidney disease, stage 3 unspecified; E11.21 Type 2 diabetes mellitus with diabetic nephropathy; E03.9 Hypothyroidism, unspecified; E21.3 Hyperparathyroidism, unspecified; E55.9 Vitamin D deficiency, unspecified; D63.1 Anemia in chronic kidney disease; N39.0 Urinary tract infection, site not specified; R80.9 Proteinuria, unspecified; M10.9 Gout, unspecified
CPT/HCPCS: 36415; 80069; 81001; 82043; 82306; 82570; 83970; 84443; 84550; 85025